=== PATIENT | female | born 1960 | race Asian ===

== ENCOUNTER → 2018-02-13 08:02 | Outpatient (REF) | payer OTHER, SELFPAY | LOC: LAB 08:02 | PROVIDERS: Family Provider Family Medicine; Visit Provider Internal Medicine Hematology & Oncology | DX: C92.10 Chronic myeloid leukemia, BCR/ABL-positive, not having achieved remission (principal) | CPT/HCPCS: 81206 ==

== ENCOUNTER → 2018-02-19 08:12 | Outpatient (CLI) | payer OTHER, SELFPAY ==
--- NOTE | 2018-02-19 | DI.MG.S_ITS ---
BILATERAL DIGITAL SCREENING MAMMOGRAM 3D/2D WITH CAD: 02/19/2018 CLINICAL: Routine screening. Comparison is made to exams dated: 10/28/2016 mammogram, 05/27/2015 mammogram, and 05/20/2014 mammogram - [facility]. The tissue of both breasts is heterogeneously dense. This may lower the sensitivity of mammography. Current study was also evaluated with a Computer Aided Detection (CAD) system. There is a 1 cm oval equal density asymmetry with a circumscribed margin in the right breast posterior depth superior region seen on the mediolateral oblique view only. No other significant masses, calcifications, or other findings are seen in either breast. IMPRESSION: INCOMPLETE: NEEDS ADDITIONAL IMAGING EVALUATION The 1 cm oval equal density asymmetry in the right breast is indeterminate. Mediolateral, exaggerated CC, and spot compression views as well as additional views with possible ultrasound are recommended. This exam was interpreted at Station ID: [id number]. NOTE: For mammograms, a report in lay terms will be sent to the patient. Approximately 15% of breast malignancies will not be visualized mammographically. In the management of a palpable breast mass, a negative mammogram must not discourage biopsy of a clinically suspicious lesion. Electronically Signed By: Savage bernard/buddy:02/19/2018 11:22:32 letter sent: Additional Imaging Needed ACR BI-RADS Category 0: Incomplete 3340F
== END ==
PROVIDERS: PCP Family Medicine; Visit Provider Family Medicine
DX: Z12.31 Encounter for screening mammogram for malignant neoplasm of breast (principal)
CPT/HCPCS: 77063; 77067

== ENCOUNTER → 2018-02-21 07:20 | Outpatient (CLI) | payer OTHER, SELFPAY ==
--- NOTE | 2018-02-21 07:22 | DI.MG.S_ITS ---
UNILATERAL RIGHT DIGITAL DIAGNOSTIC MAMMOGRAM 3D/2D WITH ADDITIONAL VIEWS: 02/21/2018 CLINICAL: Additional evaluation requested from prior study. Comparison is made to exams dated: 02/19/2018 mammogram, 10/28/2016 mammogram, and 05/27/2015 mammogram - [facility]. The tissue of the right breast is heterogeneously dense. This may lower the sensitivity of mammography. There is a 1 cm oval equal density asymmetry with a circumscribed margin in the right breast posterior depth superior region seen on the mediolateral oblique view only. No other significant masses or calcifications are seen in the breast. IMPRESSION: INCOMPLETE: NEEDS ADDITIONAL IMAGING EVALUATION The 1 cm oval equal density asymmetry in the right breast is indeterminate. An ultrasound is recommended. This exam was interpreted at Station ID: [id number]. NOTE: For mammograms, a report in lay terms will be sent to the patient. Approximately 15% of breast malignancies will not be visualized mammographically. In the management of a palpable breast mass, a negative mammogram must not discourage biopsy of a clinically suspicious lesion. Electronically Signed By: Savage bernard/buddy:02/21/2018 15:11:45 letter sent: Need Ultrasound ACR BI-RADS Category 0: Incomplete 3340F
--- NOTE | 2018-02-21 15:20 | DI.US.S_ITS ---
ULTRASOUND OF RIGHT AXILLA: 02/21/2018 CLINICAL: Patient returns for additional imaging over a suspected mass in the right breast. Comparison is made to exams dated: 02/21/2018 mammogram, 02/19/2018 mammogram, and 10/28/2016 mammogram - [facility]. Color flow and real-time ultrasound of the right axilla were performed on the areas of interest. There is a benign 1.1 cm x 0.9 cm x 0.5 cm oval lymph node with a circumscribed margin in the right breast at 10 o'clock posterior depth. This oval lymph node is of mixed echogenicity. This correlates with mammography findings. Color flow imaging demonstrates that there is no increase in vascularity. IMPRESSION: BENIGN There is no sonographic evidence of malignancy. The 1.1 cm x 0.9 cm x 0.5 cm oval lymph node in the right breast is consistent with a lymph node and is benign. A 1 year screening mammogram is recommended. This exam was interpreted at Station ID: [id number]. Electronically Signed By: Savage bernard/buddy:02/21/2018 16:33:09 letter sent: Normal Exam Ultrasound BI-RADS: 2 Benign
== END ==
PROVIDERS: PCP Family Medicine; Visit Provider Family Medicine
DX: R92.8 Other abnormal and inconclusive findings on diagnostic imaging of breast (principal)
CPT/HCPCS: 76642; 77065; G0279

== ENCOUNTER → 2018-05-08 16:00 | Outpatient (CLI) | payer OTHER, SELFPAY | PROVIDERS: PCP Family Medicine | DX: Z23 Encounter for immunization (principal) | CPT/HCPCS: 90471; 90686 ==

== ENCOUNTER → 2018-07-02 17:08 | Outpatient (CLI) | payer OTHER, SELFPAY ==
--- NOTE | 2018-07-24 11:46 | ONC.NAV ---
Description: FMLA Activity: Completed the corrections that pt requested for her 2019 FMLA forms. Notified pt that she could p/u at [employer].
== END ==
PROVIDERS: PCP Family Medicine; Visit Provider Physician Assistant
DX: J02.9 Acute pharyngitis, unspecified (principal)
CPT/HCPCS: 87070; 87077; 87147

== ENCOUNTER → 2018-07-06 08:10 | Outpatient (CLI) | payer OTHER, SELFPAY | PROVIDERS: PCP Family Medicine; Visit Provider Physician Assistant | DX: J02.9 Acute pharyngitis, unspecified (principal) | CPT/HCPCS: 87070; 87077; 87147 ==

== ENCOUNTER → 2018-10-01 09:24 | Outpatient (CLI) | payer OTHER, SELFPAY ==
--- NOTE | 2018-10-01 09:25 | DI.US.S_ITS ---
PROCEDURE: US ABDOMEN COMPLETE INDICATIONS: RUQ ABD PAIN TECHNIQUE: Real-time scanning was performed of the abdominal and retroperitoneal organs, with image documentation. COMPARISON: None. FINDINGS: Liver: Liver is normal in size and homogeneous in echotexture. Gallbladder: No findings of gallstones or sludge are seen. The gallbladder wall is not thickened, measuring 3 mm or less. No specific pericholecystic fluid is seen. The sonographic Peace sign is negative. Biliary ducts: Intrahepatic bile ducts are non-dilated. Extrahepatic bile duct caliber measures 2 mm. Normal is 6-7 mm or less in diameter, or 10 mm or less post-cholecystectomy. Pancreas: Visualized portions of the pancreas are sonographically normal. Spleen: The spleen is overall not well-seen. Spleen is normal in size and homogeneous in echotexture. Kidneys: Kidneys are normal in size and echotexture. Right kidney measures 10.7 cm long; left kidney measures 10.5 cm long. No hydronephrosis or nephrolithiasis. No solid masses. Aorta: Visualized aorta is normal in caliber at less than 3 cm. Iliacs: Proximal common iliac arteries are normal in caliber at less than 2.5 cm. IVC: Intrahepatic inferior vena cava is patent. Miscellaneous: No free abdominal fluid. IMPRESSION: The gallbladder demonstrates a normal sonographic appearance. No biliary dilatation is seen. Dictated by: Roverto Betancourt M.D. on 10/01/2018 at 11:17 Approved by: Roverto Betancourt M.D. on 10/01/2018 at 11:18
[2018-10-01 10:52] LABS: Basophils Absolute Auto 100 /uL (0-100); Eosinophils Absolute Auto 200 /uL (0-450); Monocytes Absolute Auto 500 /uL (0-900)
[2018-10-01 10:55] LABS: Add Manual Diff / Slide Review NO; Basophils Percent Auto 1.1 % (0-2); Eosinophils Percent Auto 3.3 % (2-4); Hematocrit 35.3 % (36-46); Lymphocytes Absolute Auto 1900 /uL (1100-4500); Lymphocytes Percent Auto 33.6 % (25-40); Mean Corpuscular HGB Conc 31.2 % (30-36); Mean Corpuscular Hemoglobin 23.2 PG (26-34); Mean Corpuscular Volume 74.2 fL (80-100); Monocytes Percent Auto 8.5 % (3-14); Neutrophils Absolute Auto 3100 /uL (1500-7000); Neutrophils Percent Auto 53.5 % (50-75); Platelet Count 363 X10^3/uL (150-400); Red Blood Cell Count 4.76 X10^6/uL (4.0-5.2); Red Cell Distribution Width 14.1 % (11.6-14.8); White Blood Cell Count 5.8 X10^3/uL (4.5-11.0)
[2018-10-01 10:58] LABS: Alanine Aminotransferase 34 IU/L (9-52); Albumin 4.8 g/dL (3.5-5.0); Albumin Globulin Ratio 1.4 (1.0-2.8); Alkaline Phosphatase 73 U/L (38-126); Aspartate Aminotransferase 28 IU/L (14-36); BUN Creatinine Ratio 14.3 (6-22); Bilirubin Total 0.5 mg/dL (0.2-1.3); Blood Urea Nitrogen 10 mg/dL (7-17); Calcium 9.6 mg/dL (8.4-10.2); Carbon Dioxide 26 mmol/L (22-32); Chloride 101 mmol/L (98-107); Estimated Glomerular Filt Rate > 60.0 mL/min (>60); Globulin 3.5 g/dL (1.7-4.1); Glucose 105 mg/dL (70-100); HEMOLYSIS < 15 (0-50); Potassium 3.5 mmol/L (3.4-5.1); Sodium 138 mmol/L (137-145); Total Protein 8.3 g/dL (6.3-8.2)
== END ==
PROVIDERS: PCP Family Medicine; Visit Provider Family Medicine
DX: C92.10 Chronic myeloid leukemia, BCR/ABL-positive, not having achieved remission (principal); R10.11 Right upper quadrant pain
CPT/HCPCS: 36415; 76700; 80053; 81206; 85025

== ENCOUNTER → 2018-12-18 16:34 | Outpatient (REF) | payer OTHER, SELFPAY ==
[2018-12-18 16:41] LABS: Add Manual Diff / Slide Review NO; Basophils Absolute Auto 0 /uL (0-100); Basophils Percent Auto 0.2 % (0-2); Eosinophils Absolute Auto 200 /uL (0-450); Eosinophils Percent Auto 3.6 % (2-4); Hematocrit 35.7 % (36-46); Hemoglobin 11.5 g/dL (12.0-16.0); Lymphocytes Absolute Auto 1600 /uL (1100-4500); Lymphocytes Percent Auto 25.8 % (25-40); Mean Corpuscular HGB Conc 32.1 % (30-36); Mean Corpuscular Hemoglobin 23.6 PG (26-34); Mean Corpuscular Volume 73.7 fL (80-100); Monocytes Absolute Auto 700 /uL (0-900); Monocytes Percent Auto 11.8 % (3-14); Neutrophils Absolute Auto 3600 /uL (1500-7000); Neutrophils Percent Auto 58.6 % (50-75); Platelet Count 327 X10^3/uL (150-400); Red Blood Cell Count 4.85 X10^6/uL (4.0-5.2); Red Cell Distribution Width 14.6 % (11.6-14.8); White Blood Cell Count 6.1 X10^3/uL (4.5-11.0)
[2018-12-18 16:59] LABS: Alanine Aminotransferase 20 IU/L (9-52); Albumin 4.9 g/dL (3.5-5.0); Albumin Globulin Ratio 1.4 (1.0-2.8); Alkaline Phosphatase 63 U/L (38-126); Aspartate Aminotransferase 25 IU/L (14-36); BUN Creatinine Ratio 13.3 (6-22); Bilirubin Total 0.2 mg/dL (0.2-1.3); Blood Urea Nitrogen 8 mg/dL (7-17); Calcium 9.3 mg/dL (8.4-10.2); Carbon Dioxide 23 mmol/L (22-32); Chloride 102 mmol/L (98-107); Estimated Glomerular Filt Rate > 60.0 mL/min (>60); Globulin 3.6 g/dL (1.7-4.1); Glucose 115 mg/dL (70-100); HEMOLYSIS < 15 (0-50); Potassium 3.7 mmol/L (3.4-5.1); Sodium 137 mmol/L (137-145); Total Protein 8.5 g/dL (6.3-8.2)
[2018-12-18 20:42] LABS: Clostridium Difficile Tox PCR Negative for C.diff
== END ==
LOC: LAB 16:34
PROVIDERS: PCP Family Medicine; Visit Provider Physician Assistant
DX: R19.7 Diarrhea, unspecified (principal)
CPT/HCPCS: 36415; 80053; 85025; 87045; 87493; 87899

== ENCOUNTER → 2019-05-08 07:12 | Outpatient (CLI) | payer OTHER, SELFPAY ==
--- NOTE | 2019-05-08 | DI.MG.S_ITS ---
BILATERAL DIGITAL SCREENING MAMMOGRAM 3D/2D WITH CAD: 05/08/2019 CLINICAL: Routine screening. Comparison is made to exams dated: 02/19/2018 mammogram, 10/28/2016 mammogram, 05/27/2015 mammogram, 05/20/2014 mammogram, 05/10/2013 mammogram, and 02/21/2018 mammogram - [facility]. The tissue of both breasts is heterogeneously dense. This may lower the sensitivity of mammography. Current study was also evaluated with a Computer Aided Detection (CAD) system. No significant masses, calcifications, or other findings are seen in either breast. There has been no significant interval change. IMPRESSION: NEGATIVE There is no mammographic evidence of malignancy. A 1 year screening mammogram is recommended. This exam was interpreted at Station ID: [id number]. NOTE: For mammograms, a report in lay terms will be sent to the patient. Approximately 15% of breast malignancies will not be visualized mammographically. In the management of a palpable breast mass, a negative mammogram must not discourage biopsy of a clinically suspicious lesion. Electronically Signed By: Francisco murry/buddy:05/08/2019 19:43:57 letter sent: Normal Exam ACR BI-RADS Category 1: Negative 3341F
== END ==
PROVIDERS: PCP Family Medicine; Visit Provider Family Medicine
DX: Z12.31 Encounter for screening mammogram for malignant neoplasm of breast (principal)
CPT/HCPCS: 77063; 77067

== ENCOUNTER → 2019-05-21 13:54 | Outpatient (CLI) | payer OTHER, SELFPAY | PROVIDERS: PCP Family Medicine | DX: Z23 Encounter for immunization (principal) | CPT/HCPCS: 90471; 90686 ==

== ENCOUNTER 2020-04-01 14:22 | Emergency (ER) | payer OTHER, SELFPAY ==
[2020-04-01] VITALS (10 sets, daily range): BP systolic 135–187; BP diastolic 65–81; PULSE 75–97; RESP 14–25; TEMP 36.1; O2SAT 98–100; BMI 27.3
--- NOTE | 2020-04-01 14:32 | DI.RAD.S_ITS ---
PROCEDURE: XR CHEST 1V INDICATIONS: chest pain TECHNIQUE: One view of the chest was acquired. COMPARISON: [facility], , CHEST 1 VIEW, 12/28/2010, 15:15. FINDINGS: Surgical changes and devices: None. Lungs and pleura: Lungs are clear. No pleural effusions or pneumothorax. Mediastinum: Mediastinal contours appear normal. Heart size is normal. Bones and chest wall: No suspicious bony lesions. Overlying soft tissues appear unremarkable. IMPRESSION: No evidence acute pulmonary process. Dictated by: Jamin Wilson M.D. on 04/01/2020 at 15:24 Approved by: Jamin Wilson M.D. on 04/01/2020 at 15:25
[2020-04-01 14:48] LABS: RBC Urine None Seen (0-5/HPF)
[2020-04-01 14:58] LABS: Bacteria Urine Occasional (0-1); Culture Indicated Urine Specimen Cultured; Squamous Epithelial Cell Urine 0-1 /HPF (0-5/HPF); WBC Urine 0-1/HPF (0-5/HPF)
[2020-04-01 14:58] LABS: Add Manual Diff / Slide Review NO; Basophils Absolute Auto 0 /uL (0-100); Basophils Percent Auto 0.7 % (0-2); Eosinophils Absolute Auto 0 /uL (0-450); Eosinophils Percent Auto 0.3 % (2-4); Hematocrit 34.3 % (36-46); Hemoglobin 10.6 g/dL (12.0-16.0); Lymphocytes Absolute Auto 2100 /uL (1100-4500); Lymphocytes Percent Auto 31.8 % (25-40); Mean Corpuscular Hemoglobin 23.4 PG (26-34); Mean Corpuscular Volume 75.4 fL (80-100); Monocytes Absolute Auto 500 /uL (0-900); Monocytes Percent Auto 7.4 % (3-14); Neutrophils Absolute Auto 4000 /uL (1500-7000); Neutrophils Percent Auto 59.8 % (50-75); Platelet Count 288 X10^3/uL (150-400); Red Blood Cell Count 4.55 X10^6/uL (4.0-5.2); Red Cell Distribution Width 13.2 % (11.6-14.8); White Blood Cell Count 6.7 X10^3/uL (4.5-11.0)
[2020-04-01 15:06] LABS: INR 0.9 (0.9-1.3); Prothrombin Time 10.8 SECONDS (10.1-12.7)
[2020-04-01 15:09] LABS: PTT Partial Thromboplastin Tim 35 SECONDS (26.4-36.2)
[2020-04-01 15:11] LABS: Alanine Aminotransferase 18 IU/L (<35); Albumin 4.8 g/dL (3.5-5.0); Albumin Globulin Ratio 1.5 (1.0-2.8); Alkaline Phosphatase 56 U/L (38-126); Aspartate Aminotransferase 43 IU/L (14-36); BUN Creatinine Ratio 19.2 (6-22); Bilirubin Total 0.6 mg/dL (0.2-1.3); Blood Urea Nitrogen 10 mg/dL (7-17); Calcium 9.9 mg/dL (8.4-10.2); Carbon Dioxide 24 mmol/L (22-32); Chloride 106 mmol/L (98-107); Creatine Kinase 413 U/L (30-135); Estimated Glomerular Filt Rate > 60.0 mL/min (>60); Globulin 3.2 g/dL (1.7-4.1); Glucose 107 mg/dL (70-100); HEMOLYSIS 63 (0-50); Lipase 152 U/L (23-300); Sodium 138 mmol/L (137-145)
[2020-04-01 15:12] LABS: Potassium 4.5 mmol/L (3.4-5.1)
[2020-04-01 15:22] LABS: Troponin I < 0.012 ng/mL (0.01-0.034)
[2020-04-01 15:26] LABS: CKMB % Relative Index 0.4 % (1.5-5.0); Creatine Kinase MB 1.63 ng/mL (<2.37)
--- NOTE | 2020-04-01 15:36 | ED_ITS ---
HPI - General Adult <Sami NevarezANN - Last Filed: 04/01/20 21:13> General Chief complaint: Hypertension Stated complaint: elevated blood pressure Time Seen by Provider: 04/01/20 14:32 Source: patient Mode of arrival: Ambulatory Limitations: no limitations History of Present Illness HPI narrative: This is a 59 year female, nonsmoker, who has known hypertension and CML presents to ED with elevated blood pressure over 200 in systolic at home this morning without chest pain, breathing difficulty, headache, vision change or lightheadedness. Patient has significant life stressor at this time and reports that her had a quadruple bypass 5 days ago and he is now at home recuperating and she has been taking care of him at home. She reports has not been sleeping well. Patient was very worried for elevated blood pressure and had doubled lisinopril dose this morning as 20 mg. she recheck her blood pressure and he was still elevated and had taken another additional dose of lisinopril 10 mg before coming into ED. patient reports was concerned for having a heart attack as her 's recent event. Related Data Previous Rx's Medication Instructions Recorded lisinopril 10 mg tablet 10 mg PO Q DAY #90 tab 10/30/19 imatinib [Gleevec] 400 mg PO DAILY #90 tab 01/30/20 clobetasol 0.05 % topical ointment 1 applictn TOPICAL BID PRN #60 gram 02/10/20 Allergies Allergy/AdvReac Type Severity Reaction Status Date / Time allopurinol [ALLOPURINOL] Allergy Mild rash and Verified 04/01/20 14:57 itch latex [LATEX] Allergy Mild hives Verified 04/01/20 14:57 prednisone AdvReac Mild High BP Verified 04/01/20 14:57 Review of Systems <Sami NevarezANN - Last Filed: 04/01/20 21:13> Review of Systems Narrative: General: Denies fever, chills, fatigue, malaise, sweats. HEENT: Denies sinus pain, ear pain, sore throat, difficulty swallowing, dizziness. Respiratory: Denies dyspnea, cough, wheezing, hemoptysis, sputum. Cardiovascular: Denies chest pain, palpitations, orthopnea, edema. Gastrointestinal: Denies nausea, vomiting, abdominal pain, diarrhea, constipation, melena. : Denies dysuria, frequency, incontinence, hematuria, urinary retention. Musculoskeletal: Denies weakness, joint pain or bony pain. Skin: Denies rash, skin lesions, or other. Neurologic: Denies weakness, headache, numbness, change in speech, confusion, seizures, incoordination. Psychiatric: No concerning psychosocial issues. 12-point review of systems is negative except for those stated above. Patient History <ANN Izaguirre - Last Filed: 04/01/20 21:13> Medical History (Updated 04/01/20 @ 21:08 by ANN Izaguirre) Hypertension (Acute) Thalassemia (Acute) Surgical History Status post tubal ligation (01/07/00) Family History Mother Age: 95 CVA (cerebral infarction) Hypertension Social History marital status: Smoking Status: Never smoker alcohol intake: never substance use type: does not use Smoking Status: Never smoker Exam <ANN Izaguirre - Last Filed: 04/01/20 21:13> Narrative Exam Narrative: GEN: Alert, oriented x 3, well appearing and nourished, and in no acute distress. Head: Normal cephalic, atraumatic. No scalp or temporal tenderness, palpable mass or rash. EYES: Pupils are equal, round, and reactive to light and accommodation. Extraocular muscles are intact bilaterally. There is no subconjunctival h emorrhage, exudate and sclera non-icteric. ENT: Hearing grossly intact. Nose without bleeding, purulent discharge or deviation. Airway patent. Neck: Trachea in midline. No JVD, non-tender without lymphadenopathy. No masses or thyroid megaly. Supple, non-tender and no meningeal signs. CARDIAC: Normal regular rate and rhythm without murmurs, gallops, or rubs. No chest wall tenderness. No peripheral edema, cyanosis or pallor. Capillary refill is less than 2 seconds. RESPIRATORY: Lungs are clear to auscultate bilaterally. No cough, wheezes, rales, or rhonchi. No stridor, respiratory distress, increase work of breathing, or accessary muscle used. ABD: Abdomen soft, nontender and non-distended. No guarding or rebound tenderness to palpate. Bowel sounds are normal in all 4 quadrants. There is no palpable masses or organomegaly. EXT: Full painless ROM of all extremities with no loss of sensation, strength, effusion or edema. SKIN: Warm, dry, normal color for patient. No erythema, lesions or rash over visible areas. BACK: Nontender without deformity or crepitance. No flank tenderness. NEUROLOGICAL: Alert and oriented to place, time and person. Sensation and motor function intact bilaterally. No facial droops, dysphasia. PSYCHIATRIC: Good judgement and reason, without hallucinations, abnormal affect or abnormal behaviors during the examination. Patient is not suicidal. Initial Vital Signs Initial Vital Signs: Vital Signs Temperature 97.0 F L 04/01/20 14:29 Pulse Rate 97 H 04/01/20 14:29 Respiratory Rate 16 04/01/20 14:29 Blood Pressure 187/81 H 04/01/20 14:29 Pulse Oximetry 98 04/01/20 14:29 <Monisha Venegas DO - Last Filed: 04/02/20 08:26> Initial Vital Signs Initial Vital Signs: Vital Signs Temperature 97.0 F L 04/01/20 14:29 Pulse Rate 97 H 04/01/20 14:29 Respiratory Rate 16 04/01/20 14:29 Blood Pressure 187/81 H 04/01/20 14:29 Pulse Oximetry 98 04/01/20 14:29 Scores <ANN Izaguirre - Last Filed: 04/01/20 21:13> GCS Sixto coma scale eye opening: Spontaneous [place] coma scale verbal response: Orientated Sixto coma scale motor response: Obey commands Sixto coma scale total score: 15 Course <ANN Izaguirre - Last Filed: 04/01/20 21:13> Orders Ordered: ED Orders 04/01/20 14:32 XR chest 1V Stat EKG-12 Lead Stat 04/01/20 14:34 Urine Culture Stat Urine Microscopic Stat 04/01/20 14:51 Complete Blood Count AUTO DIFF Stat Comprehensive Metabolic Panel Stat Lipase Stat Partial Thromboplastin Time Stat Prothrombin Time INR Stat Troponin & CK Cardiac Panel Stat Vital Signs Vital signs: Vital Signs - 8 hr 04/01/20 14:29 04/01/20 14:33 04/01/20 14:36 Temperature 97.0 F L Pulse Rate 97 H 97 H 93 H Respiratory Rate 16 16 21 Blood Pressure 187/81 H 177/80 H 163/80 H Pulse Oximetry 98 100 99 04/01/20 14:45 04/01/20 15:00 04/01/20 15:15 Temperature Pulse Rate 88 91 H 87 Respiratory Rate 22 20 25 H Blood Pressure 142/65 H 148/71 H 148/77 H Pulse Oximetry 99 04/01/20 15:30 04/01/20 15:45 04/01/20 16:00 Temperature Pulse Rate 82 80 79 Respiratory Rate 22 16 16 Blood Pressure 153/74 H 148/72 H 140/68 Pulse Oximetry 100 100 100 04/01/20 16:15 Temperature Pulse Rate 75 Respiratory Rate 14 Blood Pressure 135/71 Pulse Oximetry 99 <Monisha Venegas, - Last Filed: 04/02/20 08:26> Orders Ordered: ED Orders 04/01/20 14:32 XR chest 1V Stat EKG-12 Lead Stat 04/01/20 14:34 Urine Culture Stat Urine Microscopic Stat 04/01/20 14:51 Complete Blood Count AUTO DIFF Stat Comprehensive Metabolic Panel Stat Lipase Stat Partial Thromboplastin Time Stat Prothrombin Time INR Stat Troponin & CK Cardiac Panel Stat Vital Signs Vital signs: Vital Signs - 8 hr 04/01/20 14:29 04/01/20 14:33 04/01/20 14:36 Temperature 97.0 F L Pulse Rate 97 H 97 H 93 H Respiratory Rate 16 16 21 Blood Pressure 187/81 H 177/80 H 163/80 H Pulse Oximetry 98 100 99 04/01/20 14:45 04/01/20 15:00 04/01/20 15:15 Temperature Pulse Rate 88 91 H 87 Respiratory Rate 22 20 25 H Blood Pressure 142/65 H 148/71 H 148/77 H Pulse Oximetry 99 04/01/20 15:30 04/01/20 15:45 04/01/20 16:00 Temperature Pulse Rate 82 80 79 Respiratory Rate 22 16 16 Blood Pressure 153/74 H 148/72 H 140/68 Pulse Oximetry 100 100 100 04/01/20 16:15 Temperature Pulse Rate 75 Respiratory Rate 14 Blood Pressure 135/71 Pulse Oximetry 99 Medical Decision Making <Sami Dave-Oras, [employer] - Last Filed: 04/01/20 21:13> Differential Diagnosis Differential Diagnosis: HTN, NSTEMI, situational stress Medical Records Medical records reviewed: Yes I reviewed the patient's medical records. Lab Data Lab results reviewed: Yes I reviewed the patient's lab results. Result diagrams: 04/01/20 14:51 04/01/20 14:51 Labs: Lab Results 04/01/20 04/01/20 04/01/20 Range/Units 14:34 14:51 14:51 WBC 6.7 (4.5-11.0) X10^3/uL RBC 4.55 (4.0-5.2) X10^6/uL Hgb 10.6 L (12.0-16.0) g/dL Hct 34.3 L (36-46) % MCV 75.4 L (80-100) fL MCH 23.4 L (26-34) PG MCHC 31.0 (30-36) % RDW 13.2 (11.6-14.8) % Plt Count 288 (150-400) X10^3/uL Neut % (Auto) 59.8 (50-75) % Lymph % (Auto) 31.8 (25-40) % [place] % (Auto) 7.4 (3-14) % Eos % (Auto) 0.3 L (2-4) % Baso % (Auto) 0.7 (0-2) % Neut # (Auto) 4000 (6159-6911) /uL Lymph # (Auto) 2100 (5677-7452) /uL [place] # (Auto) 500 (0-900) /uL Eos # (Auto) 0 (0-450) /uL Baso # (Auto) 0 (0-100) /uL PT 10.8 (10.1-12.7) SECONDS INR 0.9 (0.9-1.3) APTT 35 (26.4-36.2) SECONDS Sodium (137-145) mmol/L Potassium (3.4-5.1) mmol/L Chloride (98-107) mmol/L Carbon Dioxide (22-32) mmol/L BUN (7-17) mg/dL Creatinine (0.52-1.04) mg/dL Estimated GFR (>60) mL/min BUN/Creatinine Ratio (6-22) Glucose (70-100) mg/dL Calcium (8.4-10.2) mg/dL Total Bilirubin (0.2-1.3) mg/dL AST (14-36) IU/L ALT (<35) IU/L Alkaline Phosphatase (38-126) U/L Total Creatine Kinase (30-135) U/L CK-MB (CK-2) (<2.37) ng/mL CK-MB (CK-2) Rel Index (1.5-5.0) % Troponin I (0.01-0.034) ng/mL Total Protein (6.3-8.2) g/dL Albumin (3.5-5.0) g/dL Globulin (1.7-4.1) g/dL Albumin/Globulin Ratio (1.0-2.8) Lipase (23-300) U/L Urine RBC None seen (0-5/HPF) Urine WBC 0-1/hpf (0-5/HPF) Ur Squamous Epith Cells 0-1 /hpf (0-5/HPF) Urine Bacteria Occasional (0-1) (None) Ur Culture Indicated? Specimen cultured 04/01/20 Range/Units 14:51 WBC (4.5-11.0) X10^3/uL RBC (4.0-5.2) X10^6/uL Hgb (12.0-16.0) g/dL Hct (36-46) % MCV (80-100) fL MCH (26-34) PG MCHC (30-36) % RDW (11.6-14.8) % Plt Count (150-400) X10^3/uL Neut % (Auto) (50-75) % Lymph % (Auto) (25-40) % [place] % (Auto) (3-14) % Eos % (Auto) (2-4) % Baso % (Auto) (0-2) % Neut # (Auto) (2569-4615) /uL Lymph # (Auto) (9713-3241) /uL [place] # (Auto) (0-900) /uL Eos # (Auto) (0-450) /uL Baso # (Auto) (0-100) /uL PT (10.1-12.7) SECONDS INR (0.9-1.3) APTT (26.4-36.2) SECONDS Sodium 138 (137-145) mmol/L Potassium 4.5 (3.4-5.1) mmol/L Chloride 106 (98-107) mmol/L Carbon Dioxide 24 (22-32) mmol/L BUN 10 (7-17) mg/dL Creatinine 0.52 (0.52-1.04) mg/dL Estimated GFR > 60.0 (>60) mL/min BUN/Creatinine Ratio 19.2 (6-22) Glucose 107 H (70-100) mg/dL Calcium 9.9 (8.4-10.2) mg/dL Total Bilirubin 0.6 (0.2-1.3) mg/dL AST 43 H (14-36) IU/L ALT 18 (<35) IU/L Alkaline Phosphatase 56 (38-126) U/L Total Creatine Kinase 413 H (30-135) U/L CK-MB (CK-2) 1.63 (<2.37) ng/mL CK-MB (CK-2) Rel Index 0.4 L (1.5-5.0) % Troponin I < 0.012 (0.01-0.034) ng/mL Total Protein 8.0 (6.3-8.2) g/dL Albumin 4.8 (3.5-5.0) g/dL Globulin 3.2 (1.7-4.1) g/dL Albumin/Globulin Ratio 1.5 (1.0-2.8) Lipase 152 (23-300) U/L Urine RBC (0-5/HPF) Urine WBC (0-5/HPF) Ur Squamous Epith Cells (0-5/HPF) Urine Bacteria (None) Ur Culture Indicated? Urine Dip Bedside Urine Glucose Negative Bedside Urine Bilirubin - Negative Bedside Urine Ketone - Negative Urine Specific [place] 1.030 Bedside Urine Occult Blood - Negative Bedside Urine pH 6 Bedside Urine Protein - Negative Bedside Urine Urobilinogen - Negative Bedside Urine Nitrite - Negative Bedside Urine Leukocytes + 70 Esterase Point of care testing: Urine Dip Bedside Urine Glucose Negative Bedside Urine Bilirubin - Negative Bedside Urine Ketone - Negative Urine Specific [place] 1.030 Bedside Urine Occult Blood - Negative Bedside Urine pH 6 Bedside Urine Protein - Negative Bedside Urine Urobilinogen - Negative Bedside Urine Nitrite - Negative Bedside Urine Leukocytes + 70 Esterase Imaging Data Chest x-ray: Radiologist's Impression: [address] [address] XRay Report Signed Patient: Tayler Peng [facility]#: [id number] : 1Acct:[id number] Age/Sex: 59 / FDate of Service: 04/01/20 Loc: ED Accession Number: [id number] Procedure: XR chest 1V Ordering Provider: Monisha Venegas D.O. PROCEDURE: XR CHEST 1V INDICATIONS: chest pain TECHNIQUE: One view of the chest was acquired. COMPARISON: [facility], , CHEST 1 VIEW, 12/28/2010, 15:15. FINDINGS: Surgical changes and devices: None. Lungs and pleura: Lungs are clear. No pleural effusions or pneumothorax. Mediastinum: Mediastinal contours appear normal. Heart size is normal. Bones and chest wall: No suspicious bony lesions. Overlying soft tissues appear unremarkable. IMPRESSION: No evidence acute pulmonary process. Dictated by: Jamin Wilson M.D. on 04/01/2020 at 15:24 Approved by: Jamin Wilson M.D. on 04/01/2020 at 15:25 ECG Data Attestation: I personally reviewed and interpreted this ECG as follows: Prior ECG tracings: available for review Interpretation: Normal sinus rhythm rate at 90. Normal [place]. [place] interval 140, QRS duration 82, QT/OAT532/[address] changes. No significant changes from previous EKGs MDM Narrative Medical decision making narrative: This is a 59 year female who has history of hypertension presents to ED with elevated blood pressure upto 200 in SBP with home wrist blood pressure monitoring machine but without cardiac symptoms. Her prescribed blood pressure medication lisinopril dose is at 10 mg. she was instructed to take additional 10 mg with elevated blood pressure per her primary care physician. So she had taken 20 mg of lisinopril in the morning but when the BP was not improving patient has taken additional 10 mg lisinopril before coming into ED. she had taken 2 doses of baby aspirin at home. Patient is going through significant life stress at this time with her 's recent cardiac bypass surgery. Patient denies any cardiac symptoms. EKG shows normal sinus rhythm. Chest x- ray is within normal limit without acute findings. Troponin was negative. Chemistry was unremarkable. Patient has history of thalassemia anemia which reflected in today's CBC test with mildly decreased H&H of 10.6/34.3. Patient's blood pressure improved from 187/81 to 135/71 over 2.5 hrs monitored in ED. Patient advised to monitor blood pressure and track around same time of the day with same activity and to present this for next appointment with primary care physician. Patient may need medication adjustment based on this or this is incidental hypertensive episode due to situational stress. Patient informed it is okay to take doubling her lisinopril if her blood pressure is elevated above 170-180 in SBP. We talked about nonpharmacological way to decompressed for stress. Return precautions were discussed with patient especially if she has cardiac symptoms. Patient verbalized understanding and agreement with the treatment plan. <Monisha Venegas DO - Last Filed: 04/02/20 08:26> Lab Data Labs: Lab Results 04/01/20 04/01/20 04/01/20 Range/Units 14:34 14:51 14:51 WBC 6.7 (4.5-11.0) X10^3/uL RBC 4.55 (4.0-5.2) X10^6/uL Hgb 10.6 L (12.0-16.0) g/dL Hct 34.3 L (36-46) % MCV 75.4 L (80-100) fL MCH 23.4 L (26-34) PG MCHC 31.0 (30-36) % RDW 13.2 (11.6-14.8) % Plt Count 288 (150-400) X10^3/uL Neut % (Auto) 59.8 (50-75) % Lymph % (Auto) 31.8 (25-40) % [place] % (Auto) 7.4 (3-14) % Eos % (Auto) 0.3 L (2-4) % Baso % (Auto) 0.7 (0-2) % Neut # (Auto) 4000 (5127-5178) /uL Lymph # (Auto) 2100 (4228-2299) /uL [place] # (Auto) 500 (0-900) /uL Eos # (Auto) 0 (0-450) /uL Baso # (Auto) 0 (0-100) /uL PT 10.8 (10.1-12.7) SECONDS INR 0.9 (0.9-1.3) APTT 35 (26.4-36.2) SECONDS Sodium (137-145) mmol/L Potassium (3.4-5.1) mmol/L Chloride (98-107) mmol/L Carbon Dioxide (22-32) mmol/L BUN (7-17) mg/dL Creatinine (0.52-1.04) mg/dL Estimated GFR (>60) mL/min BUN/Creatinine Ratio (6-22) Glucose (70-100) mg/dL Calcium (8.4-10.2) mg/dL Total Bilirubin (0.2-1.3) mg/dL AST (14-36) IU/L ALT (<35) IU/L Alkaline Phosphatase (38-126) U/L Total Creatine Kinase (30-135) U/L CK-MB (CK-2) (<2.37) ng/mL CK-MB (CK-2) Rel Index (1.5-5.0) % Troponin I (0.01-0.034) ng/mL Total Protein (6.3-8.2) g/dL Albumin (3.5-5.0) g/dL Globulin (1.7-4.1) g/dL Albumin/Globulin Ratio (1.0-2.8) Lipase (23-300) U/L Urine RBC None seen (0-5/HPF) Urine WBC 0-1/hpf (0-5/HPF) Ur Squamous Epith Cells 0-1 /hpf (0-5/HPF) Urine Bacteria Occasional (0-1) (None) Ur Culture Indicated? Specimen cultured 04/01/20 Range/Units 14:51 WBC (4.5-11.0) X10^3/uL RBC (4.0-5.2) X10^6/uL Hgb (12.0-16.0) g/dL Hct (36-46) % MCV (80-100) fL MCH (26-34) PG MCHC (30-36) % RDW (11.6-14.8) % Plt Count (150-400) X10^3/uL Neut % (Auto) (50-75) % Lymph % (Auto) (25-40) % [place] % (Auto) (3-14) % Eos % (Auto) (2-4) % Baso % (Auto) (0-2) % Neut # (Auto) (8726-2530) /uL Lymph # (Auto) (0097-8472) /uL [place] # (Auto) (0-900) /uL Eos # (Auto) (0-450) /uL Baso # (Auto) (0-100) /uL PT (10.1-12.7) SECONDS INR (0.9-1.3) APTT (26.4-36.2) SECONDS Sodium 138 (137-145) mmol/L Potassium 4.5 (3.4-5.1) mmol/L Chloride 106 (98-107) mmol/L Carbon Dioxide 24 (22-32) mmol/L BUN 10 (7-17) mg/dL Creatinine 0.52 (0.52-1.04) mg/dL Estimated GFR > 60.0 (>60) mL/min BUN/Creatinine Ratio 19.2 (6-22) Glucose 107 H (70-100) mg/dL Calcium 9.9 (8.4-10.2) mg/dL Total Bilirubin 0.6 (0.2-1.3) mg/dL AST 43 H (14-36) IU/L ALT 18 (<35) IU/L Alkaline Phosphatase 56 (38-126) U/L Total Creatine Kinase 413 H (30-135) U/L CK-MB (CK-2) 1.63 (<2.37) ng/mL CK-MB (CK-2) Rel Index 0.4 L (1.5-5.0) % Troponin I < 0.012 (0.01-0.034) ng/mL Total Protein 8.0 (6.3-8.2) g/dL Albumin 4.8 (3.5-5.0) g/dL Globulin 3.2 (1.7-4.1) g/dL Albumin/Globulin Ratio 1.5 (1.0-2.8) Lipase 152 (23-300) U/L Urine RBC (0-5/HPF) Urine WBC (0-5/HPF) Ur Squamous Epith Cells (0-5/HPF) Urine Bacteria (None) Ur Culture Indicated? Urine Dip Bedside Urine Glucose Negative Bedside Urine Bilirubin - Negative Bedside Urine Ketone - Negative Urine Specific [place] 1.030 Bedside Urine Occult Blood - Negative Bedside Urine pH 6 Bedside Urine Protein - Negative Bedside Urine Urobilinogen - Negative Bedside Urine Nitrite - Negative Bedside Urine Leukocytes + 70 Esterase Point of care testing: Urine Dip Bedside Urine Glucose Negative Bedside Urine Bilirubin - Negative Bedside Urine Ketone - Negative Urine Specific [place] 1.030 Bedside Urine Occult Blood - Negative Bedside Urine pH 6 Bedside Urine Protein - Negative Bedside Urine Urobilinogen - Negative Bedside Urine Nitrite - Negative Bedside Urine Leukocytes + 70 Esterase Discharge Plan Departure Patient Disposition: Home Clinical Impression: Acute reaction to situational stress Hypertension Qualifiers: Hypertension type: essential hypertension Qualified Code(s): I10 - Essential (primary) hypertension Discharge Date/Time: 04/01/20 16:45 Instructions: DI for High Blood Pressure Activity Restrictions/Additional Instructions: You have been diagnosed with [elevated blood pressure likely from situational stress. EKG, chest x-ray, cardiac enzymes, chemistry tests are unremarkable. CBC test shows anemia given you have history of thalassemia anemia. Urine culture is pending. Will receive a phone call from us if you require antibiotic medication treatment.]. What to do: *Take your medications as directed. Continue with your blood pressure medications. Please monitor your blood pressure around same time with same activities 3 times a day for next several days. Please present this reading for your next appointment with Dr. Gustafson. If your blood pressure is elevated >170 in Systolic, take additional dose of the medication. *Follow up with your primary care provider in 2-3 days, call for an appointment. Let them know you were seen in the ED and that we asked you to be seen in follow up. *Return to ED if you have any new, worsening, or concerning symptoms, such as [chest pain, breathing difficulty, lightheadedness, nausea/vomiting, cold sweats or any acute concerns]. Prescriptions: No Action lisinopril [Zestril] 10 mg tablet 10 mg PO Q DAY Qty: 90 RF: 3 clobetasol 0.05 % ointment 1 applictn Topical BID PRN (Reason: eczema) Qty: 60 RF: 3 imatinib [Gleevec] 400 mg Tablet 400 mg PO DAILY Qty: 90 RF: 3 Referrals: Abel Gustafson MD [Primary Care Provider] - <Monisha Venegas DO - Last Filed: 04/02/20 08:26> Cosign ED Attending Preetiature Attestation: I was immediately available in the department for consultation. Documentation has been reviewed. I agree with assessment and plan.
== END 2020-04-01 16:45 | disposition home or self-care (01) ==
PROVIDERS: Emergency Medicine; Emergency Provider Nurse Practitioner Family; PCP Family Medicine
DX: I10 Essential (primary) hypertension (principal); F43.9 Reaction to severe stress, unspecified; R07.9 Chest pain, unspecified; D56.9 Thalassemia, unspecified
CPT/HCPCS: 36415; 71045; 80053; 81003; 81015; 82550; 82553; 83690; 84484; 85025; 85610; 85730; 87086; 93005; 99284

== ENCOUNTER → 2020-06-16 02:25 | Outpatient (CLI) | payer OTHER, SELFPAY | PROVIDERS: PCP Family Medicine; Referring Provider Internal Medicine; Visit Provider Internal Medicine | DX: Z23 Encounter for immunization (principal) | CPT/HCPCS: 90471; 90686 ==

== ENCOUNTER → 2020-06-23 09:11 | Outpatient (CLI) | payer OTHER, SELFPAY ==
--- NOTE | 2020-06-23 | DI.MG.S_ITS ---
BILATERAL DIGITAL SCREENING MAMMOGRAM 3D/2D WITH CAD: 06/23/2020 CLINICAL: Routine screening. Comparison is made to exams dated: 05/08/2019 mammogram, 02/19/2018 mammogram, and 10/28/2016 mammogram - [facility]. The tissue of both breasts is heterogeneously dense. This may lower the sensitivity of mammography. Current study was also evaluated with a Computer Aided Detection (CAD) system. No significant masses, calcifications, or other findings are seen in either breast. There has been no significant interval change. IMPRESSION: NEGATIVE There is no mammographic evidence of malignancy. A 1 year screening mammogram is recommended. This exam was interpreted at Station ID: [id number]. NOTE: For mammograms, a report in lay terms will be sent to the patient. Approximately 15% of breast malignancies will not be visualized mammographically. In the management of a palpable breast mass, a negative mammogram must not discourage biopsy of a clinically suspicious lesion. Electronically Signed By: Teo jones/buddy:06/23/2020 10:31:22 letter sent: Normal Exam ACR BI-RADS Category 1: Negative [id number]
== END ==
PROVIDERS: PCP Family Medicine; Referring Provider Family Medicine; Visit Provider Family Medicine
DX: Z12.31 Encounter for screening mammogram for malignant neoplasm of breast (principal)
CPT/HCPCS: 77063; 77067

== ENCOUNTER → 2020-08-13 06:48 | Outpatient (CLI) | payer OTHER, SELFPAY ==
[2020-08-13 07:29] LABS: Add Manual Diff / Slide Review NO; Basophils Absolute Auto 0 /uL (0-100); Basophils Percent Auto 0.6 % (0-2); Eosinophils Absolute Auto 100 /uL (0-450); Eosinophils Percent Auto 1.9 % (2-4); Hematocrit 34.1 % (36-46); Hemoglobin 10.5 g/dL (12.0-16.0); Lymphocytes Absolute Auto 2900 /uL (1100-4500); Lymphocytes Percent Auto 49.9 % (25-40); Mean Corpuscular HGB Conc 30.9 % (30-36); Mean Corpuscular Hemoglobin 23.1 PG (26-34); Mean Corpuscular Volume 74.9 fL (80-100); Monocytes Absolute Auto 600 /uL (0-900); Monocytes Percent Auto 10.3 % (3-14); Neutrophils Absolute Auto 2200 /uL (1500-7000); Neutrophils Percent Auto 37.3 % (50-75); Platelet Count 309 X10^3/uL (150-400); Red Blood Cell Count 4.55 X10^6/uL (4.0-5.2); Red Cell Distribution Width 13.6 % (11.6-14.8); White Blood Cell Count 5.8 X10^3/uL (4.5-11.0)
[2020-08-13 07:41] LABS: Alanine Aminotransferase 13 IU/L (<35); Albumin 4.5 g/dL (3.5-5.0); Albumin Globulin Ratio 1.4 (1.0-2.8); Alkaline Phosphatase 61 U/L (38-126); Aspartate Aminotransferase 25 IU/L (14-36); BUN Creatinine Ratio 27.4 (6-22); Bilirubin Total 0.4 mg/dL (0.2-1.3); Blood Urea Nitrogen 17 mg/dL (7-17); Calcium 9.2 mg/dL (8.4-10.2); Carbon Dioxide 30 mmol/L (22-32); Chloride 103 mmol/L (98-107); Estimated Glomerular Filt Rate > 60.0 mL/min (>60); Globulin 3.3 g/dL (1.7-4.1); Glucose 100 mg/dL (70-100); HEMOLYSIS < 15 (0-50); Potassium 3.9 mmol/L (3.4-5.1); Sodium 139 mmol/L (137-145); Total Protein 7.8 g/dL (6.3-8.2)
[2020-08-13 08:16] LABS: Ferritin 183 ng/mL (11-264)
[2020-08-20 23:07] LABS: Interpretation Negative (.)
== END ==
PROVIDERS: PCP Family Medicine; Referring Provider Internal Medicine Hematology & Oncology; Visit Provider Internal Medicine Hematology & Oncology
DX: C92.10 Chronic myeloid leukemia, BCR/ABL-positive, not having achieved remission (principal); D64.9 Anemia, unspecified
CPT/HCPCS: 36415; 80053; 81206; 81207; 82728; 85025

== ENCOUNTER → 2020-09-02 10:03 | Outpatient (CLI) | payer OTHER, SELFPAY ==
[2020-09-02] MEDS: COVID-19 VACC(MODERNA-1)/PF 100 MCG/0.5 ML VIAL IM (10:11)
== END ==
PROVIDERS: PCP Family Medicine; Visit Provider Internal Medicine
DX: Z23 Encounter for immunization (principal)
CPT/HCPCS: 0011A; 91301

== ENCOUNTER → 2020-09-29 10:02 | Outpatient (CLI) | payer OTHER, SELFPAY ==
[2020-09-29] MEDS: COVID-19 VACC #2, MRNA(MOD) 100 MCG/0.5 ML VIAL IM (10:05)
== END ==
PROVIDERS: PCP Family Medicine; Visit Provider Internal Medicine
DX: Z23 Encounter for immunization (principal)
CPT/HCPCS: 0012A; 91301

== ENCOUNTER → 2020-10-26 09:46 | Outpatient (CLI) | payer OTHER, SELFPAY ==
[2020-10-26 10:53] LABS: COVID19 -Nasal RAPID Negative (Negative)
== END ==
PROVIDERS: PCP Family Medicine; Visit Provider Nurse Practitioner Family
DX: Z20.822 Contact with and (suspected) exposure to COVID-19 (principal)
CPT/HCPCS: 87635

== ENCOUNTER → 2021-04-30 09:50 | Outpatient (CLI) | payer OTHER, SELFPAY ==
[2021-04-30 10:39] LABS: COVID19 -Nasal RAPID Negative (Negative)
== END ==
PROVIDERS: PCP Family Medicine; Referring Provider Nurse Practitioner; Visit Provider Nurse Practitioner
DX: J02.9 Acute pharyngitis, unspecified (principal); R52 Pain, unspecified; Z20.822 Contact with and (suspected) exposure to COVID-19
CPT/HCPCS: 87635

== ENCOUNTER → 2021-06-08 | Outpatient (CLI) | payer OTHER, SELFPAY | PROVIDERS: PCP Family Medicine; Referring Provider Internal Medicine; Visit Provider Internal Medicine | DX: Z23 Encounter for immunization (principal) | CPT/HCPCS: 90471; 90686 ==

== ENCOUNTER → 2021-07-02 09:26 | Outpatient (CLI) | payer OTHER, SELFPAY ==
[2021-07-02] MEDS: COVID-19 VACC #3, MRNA(MOD) 50 MCG/0.25 ML VIAL IM (09:33)
== END ==
PROVIDERS: PCP Family Medicine; Visit Provider Internal Medicine
DX: Z23 Encounter for immunization (principal)
CPT/HCPCS: 0013A; 91301

== ENCOUNTER → 2021-08-12 06:57 | Outpatient (CLI) | payer OTHER, SELFPAY ==
--- NOTE | 2021-08-12 | DI.MG.S_ITS ---
BILATERAL DIGITAL SCREENING MAMMOGRAM 3D/2D WITH CAD: 08/12/2021 CLINICAL: Routine screening. Comparison is made to exams dated: 06/23/2020 mammogram, 05/08/2019 mammogram, and 02/19/2018 mammogram - [facility]. The tissue of both breasts is heterogeneously dense. This may lower the sensitivity of mammography. Current study was also evaluated with a Computer Aided Detection (CAD) system. There is a biopsy clip in the left breast. No significant masses, calcifications, or other findings are seen in either breast. There has been no significant interval change. IMPRESSION: NEGATIVE There is no mammographic evidence of malignancy. A 1 year screening mammogram is recommended. This exam was interpreted at Station ID: [id number]. NOTE: For mammograms, a report in lay terms will be sent to the patient. Approximately 15% of breast malignancies will not be visualized mammographically. In the management of a palpable breast mass, a negative mammogram must not discourage biopsy of a clinically suspicious lesion. Electronically Signed By: Zoë hwang/buddy:08/12/2021 11:30:56 letter sent: Normal Exam ACR BI-RADS Category 1: Negative [id number]
== END ==
PROVIDERS: PCP Family Medicine; Referring Provider Family Medicine; Visit Provider Family Medicine
DX: Z12.31 Encounter for screening mammogram for malignant neoplasm of breast (principal)
CPT/HCPCS: 77063; 77067

== ENCOUNTER → 2021-08-16 09:57 | Outpatient (CLI) | payer OTHER, SELFPAY ==
[2021-08-16 10:32] LABS: COVID19 -Nasal RAPID Negative (Negative)
== END ==
PROVIDERS: PCP Family Medicine; Visit Provider Physician Assistant
DX: Z20.822 Contact with and (suspected) exposure to COVID-19 (principal)
CPT/HCPCS: 87635

== ENCOUNTER → 2021-09-14 07:19 | Outpatient (CLI) | payer OTHER, SELFPAY ==
[2021-09-14 08:15] LABS: Add Manual Diff / Slide Review NO; Basophils Absolute Auto 100 /uL (0-100); Basophils Percent Auto 1.5 % (0-2); Eosinophils Absolute Auto 100 /uL (0-450); Eosinophils Percent Auto 2.8 % (2-4); Hematocrit 32.8 % (36-46); Hemoglobin 10.6 g/dL (12.0-16.0); Lymphocytes Absolute Auto 2100 /uL (1100-4500); Lymphocytes Percent Auto 44.2 % (25-40); Mean Corpuscular HGB Conc 32.2 % (30-36); Mean Corpuscular Hemoglobin 23.3 PG (26-34); Mean Corpuscular Volume 72.3 fL (80-100); Monocytes Absolute Auto 400 /uL (0-900); Monocytes Percent Auto 8.4 % (3-14); Neutrophils Absolute Auto 2000 /uL (1500-7000); Neutrophils Percent Auto 43.1 % (50-75); Platelet Count 247 X10^3/uL (150-400); Red Blood Cell Count 4.54 X10^6/uL (4.0-5.2); Red Cell Distribution Width 14.1 % (11.6-14.8); White Blood Cell Count 4.8 X10^3/uL (4.5-11.0)
[2021-09-14 08:50] LABS: Alanine Aminotransferase 13 IU/L (<35); Albumin 4.6 g/dL (3.5-5.0); Albumin Globulin Ratio 1.5 (1.0-2.8); Alkaline Phosphatase 59 U/L (38-126); Aspartate Aminotransferase 25 IU/L (14-36); BUN Creatinine Ratio 21.9 (6-22); Bilirubin Total 0.4 mg/dL (0.2-1.3); Blood Urea Nitrogen 16 mg/dL (7-17); Calcium 9.1 mg/dL (8.4-10.2); Carbon Dioxide 26 mmol/L (22-32); Chloride 105 mmol/L (98-107); Estimated Glomerular Filt Rate > 60.0 mL/min (>60); Globulin 3.1 g/dL (1.7-4.1); Glucose 107 mg/dL (80-110); HEMOLYSIS < 15 (0-50); Potassium 4.3 mmol/L (3.4-5.1); Sodium 138 mmol/L (137-145); Total Protein 7.7 g/dL (6.3-8.2)
[2021-09-26 12:11] LABS: Interpretation Negative (.)
== END ==
PROVIDERS: PCP Family Medicine; Referring Provider Internal Medicine Hematology & Oncology; Visit Provider Internal Medicine Hematology & Oncology
DX: C92.10 Chronic myeloid leukemia, BCR/ABL-positive, not having achieved remission (principal)
CPT/HCPCS: 36415; 80053; 81206; 81207; 85025

== ENCOUNTER → 2021-10-18 07:18 | Outpatient (CLI) | payer OTHER, SELFPAY ==
--- NOTE | 2021-10-18 07:19 | DI.MRI.S_ITS ---
PROCEDURE: MR HEAD/BRAIN WO/W CON INDICATIONS: double vision, CML TECHNIQUE: Noncontrast axial T1 spin echo, axial T2 fast spin echo, sagittal and axial FLAIR, coronal T2 fast spin echo, axial gradient echo, axial diffusion and ADC through the brain. After the administration of contrast, axial and coronal 3D VIBE or T1 spin echo with fat saturation through the brain. COMPARISON: None. FINDINGS: Image quality: Excellent. CSF Spaces: Basal cisterns are patent. No extra-axial fluid collections. Ventricles are normal in size and shape. Brain: No midline shift. No intracranial bleeds or masses. There are minimal frontal subcortical white matter chronic microvascular ischemic changes. No abnormal intracranial enhancement. The brainstem appears normal. Diffusion-weighted images demonstrate no acute ischemic insults. No chronic ischemic insults. Normal intravascular flow voids are present. Dural sinuses demonstrate normal postcontrast enhancement. Skull and face: Calvarial marrow is normal in signal. Orbits appear normal. Sinuses: Sinuses and mastoids appear clear. IMPRESSION: 1. No acute intracranial disease process. 2. No abnormal intracranial mass or mass effect. 3. No suspicious postcontrast enhancement. Dictated by: Anna Loyola MD, PhD on 10/18/2021 at 11:28 Approved by: Anna Loyola MD, PhD on 10/18/2021 at 11:31
== END ==
PROVIDERS: PCP Family Medicine; Referring Provider Internal Medicine Hematology & Oncology; Visit Provider Internal Medicine Hematology & Oncology
DX: C92.10 Chronic myeloid leukemia, BCR/ABL-positive, not having achieved remission (principal); H53.2 Diplopia
CPT/HCPCS: 70553; A9579

== ENCOUNTER → 2022-05-24 07:38 | Outpatient (CLI) | payer OTHER, SELFPAY | PROVIDERS: PCP Family Medicine; Referring Provider Internal Medicine; Visit Provider Internal Medicine | DX: Z23 Encounter for immunization (principal) | CPT/HCPCS: 90471; 90686 ==

== ENCOUNTER → 2022-08-15 14:49 | Outpatient (CLI) | payer OTHER, SELFPAY ==
[2022-08-15 17:09] LABS: Influenza A - CEPHEID Flu A POSITIVE (NEGATIVE); Influenza B - CEPHEID Flu B NEGATIVE (NEGATIVE); Respiratory Syncytial Virus Negative (Negative)
[2022-08-15 17:25] LABS: COVID-19 CEPHEID 4-PLEX PCR Negative (Negative)
== END ==
PROVIDERS: PCP Family Medicine; Visit Provider Physician Assistant Medical
DX: R05.9 Cough, unspecified (principal); R50.9 Fever, unspecified; R51.9 Headache, unspecified; Z20.822 Contact with and (suspected) exposure to COVID-19
CPT/HCPCS: 0241U

== ENCOUNTER → 2022-09-05 07:00 | Outpatient (CLI) | payer OTHER, SELFPAY ==
--- NOTE | 2022-09-05 | DI.MG.S_ITS ---
BILATERAL DIGITAL SCREENING MAMMOGRAM 3D/2D WITH CAD: 09/05/2022 CLINICAL: Routine screening. Comparison is made to exams dated: 08/12/2021 mammogram, 06/23/2020 mammogram, and 05/08/2019 mammogram - [facility]. Both breasts are heterogeneously dense, which may obscure small masses (category c / 51-75% glandular tissue). Current study was also evaluated with a Computer Aided Detection (CAD) system. There is a biopsy clip in the left breast. No significant masses, calcifications, or other findings are seen in either breast. There has been no significant interval change. IMPRESSION: NEGATIVE There is no mammographic evidence of malignancy. A 1 year screening mammogram is recommended. Based on the Tyrer Cuzick model (a risk assessment model) the patient's lifetime risk is 10.6% and her 10 year risk is 4.5%. According to the ACR, ACS, and NCCN guidelines, an annual breast MRI exam along with mammogram is recommended if the patient's lifetime risk is 20% or greater. This exam was interpreted at Station ID: [id number]. NOTE: For mammograms, a report in lay terms will be sent to the patient. Approximately 15% of breast malignancies will not be visualized mammographically. In the management of a palpable breast mass, a negative mammogram must not discourage biopsy of a clinically suspicious lesion. Electronically Signed By: Teo jones/buddy:09/05/2022 17:02:01 letter sent: Normal Exam ACR BI-RADS Category 1: Negative 3341F
== END ==
PROVIDERS: PCP Family Medicine; Referring Provider Family Medicine; Visit Provider Family Medicine
DX: Z12.31 Encounter for screening mammogram for malignant neoplasm of breast (principal)
CPT/HCPCS: 77063; 77067

== ENCOUNTER → 2022-10-12 08:20 | Outpatient (CLI) | payer OTHER, SELFPAY ==
[2022-10-12 09:04] LABS: Add Manual Diff / Slide Review NO; Basophils Absolute Auto 0 /uL (0-100); Basophils Percent Auto 0.2 % (0-2); Eosinophils Absolute Auto 100 /uL (0-450); Eosinophils Percent Auto 2.6 % (2-4); Hematocrit 31.4 % (36-46); Lymphocytes Absolute Auto 2500 /uL (1100-4500); Lymphocytes Percent Auto 47.7 % (25-40); Mean Corpuscular HGB Conc 31.8 % (30-36); Mean Corpuscular Hemoglobin 23.4 PG (26-34); Mean Corpuscular Volume 73.5 fL (80-100); Monocytes Absolute Auto 400 /uL (0-900); Monocytes Percent Auto 8.3 % (3-14); Neutrophils Absolute Auto 2200 /uL (1500-7000); Neutrophils Percent Auto 41.2 % (50-75); Platelet Count 271 X10^3/uL (150-400); Red Blood Cell Count 4.28 X10^6/uL (4.0-5.2); Red Cell Distribution Width 14.7 % (11.6-14.8); White Blood Cell Count 5.3 X10^3/uL (4.5-11.0)
[2022-10-12 09:11] LABS: Alanine Aminotransferase 18 IU/L (<35); Albumin 4.5 g/dL (3.5-5.0); Albumin Globulin Ratio 1.4 (1.0-2.8); Alkaline Phosphatase 79 U/L (38-126); Aspartate Aminotransferase 25 IU/L (14-36); BUN Creatinine Ratio 19.7 (6-22); Bilirubin Total 0.2 mg/dL (0.2-1.3); Blood Urea Nitrogen 12 mg/dL (7-17); Calcium 8.7 mg/dL (8.4-10.2); Carbon Dioxide 24 mmol/L (22-32); Chloride 104 mmol/L (98-107); Estimated Glomerular Filt Rate > 60 mL/min (>60); Globulin 3.3 g/dL (1.7-4.1); Glucose 100 mg/dL (80-110); HEMOLYSIS < 15 (0-50); Potassium 3.8 mmol/L (3.4-5.1); Sodium 139 mmol/L (137-145); Total Protein 7.8 g/dL (6.3-8.2)
[2022-10-20 23:57] LABS: Interpretation Negative (.)
== END ==
PROVIDERS: PCP Family Medicine; Referring Provider Internal Medicine Hematology & Oncology; Visit Provider Internal Medicine Hematology & Oncology
DX: C92.10 Chronic myeloid leukemia, BCR/ABL-positive, not having achieved remission (principal)
CPT/HCPCS: 36415; 80053; 81206; 81207; 85025

== ENCOUNTER 2022-11-08 07:54 | Day surgery (SDC) | payer OTHER, SELFPAY ==
[2022-11-08 08:14] VITALS: BP 117/74; PULSE 93; RESP 16; TEMP 36.2; O2SAT 100; BMI 25.7
[2022-11-08] MEDS: LACTATED RINGERS 1,000 ML 200 ML IV (08:28)
--- NOTE | 2022-11-08 09:09 | PM.HP.1 ---
History of Present Illness History of Present Illness Date Patient Seen: 11/08/22 Time Patient Seen: 09:09 Chief complaint: Colonoscopy Narrative: The patient presents for colorectal screening. Previously normal colonoscopy 10 years ago.. No personal or family history of colon cancer. On further history denies any recent gastrointestinal symptoms. No nausea, vomiting, abdominal pain, loss of appetite, unexplained weight loss, change in bowel habits, or blood per rectum. Patient History Medical History Hypertension Thalassemia Surgical History Status post tubal ligation (01/07/00) Family & Social History Family History Mother Age: 97 CVA (cerebral infarction) Hypertension Social History: household members spouse Tobacco & Substance use: Smoking Status Never smoker alcohol intake never Substance Use Type does not use Meds Home Medications and Allergies Home Medications Medication Instructions Recorded Confirmed Type clobetasol 0.05 % topical ointment 1 applic topical BID PRN eczema 04/14/22 11/08/22 Rx #60 grams desonide 0.05 % topical cream 1 applic topical BID #60 grams 04/14/22 11/08/22 Rx lisinopril 10 mg tablet 10 mg PO DAILY #90 tabs 09/20/22 11/08/22 Rx imatinib 400 mg tablet (Gleevec) 400 mg PO DAILY #90 tabs 10/24/22 11/08/22 Rx Allergies Allergy/AdvReac Type Severity Reaction Status Date / Time allopurinol [ALLOPURINOL] Allergy Mild rash and Verified 11/08/22 08:24 itch latex [LATEX] Allergy Mild hives Verified 11/08/22 08:24 prednisone AdvReac Mild High BP Verified 11/08/22 08:24 Exam Vital Signs (past 8 hours): - 11/08/22 08:14 Temperature 97.2 F L Pulse Rate 93 H Respiratory Rate 16 Blood Pressure 117/74 Pulse Oximetry 100 Oxygen Delivery Method Room Air Oxygen Delivery Method Room Air Narrative Exam Narrative: General adult woman alert oriented no acute distress Abdomen soft nontender nondistended Assessment & Plan Assessment & Plan narrative: The patient requires colorectal screening and colonoscopy is recommended. Technical details were discussed. Risks, benefits, alternatives explained. Risks including but not limited to myocardial infarction, aspiration, bleeding, pain, missed lesion, incomplete examination, need for further radiographic studies, colonic perforation, and need for major abdominal surgery were discussed. All questions were answered to their satisfaction, and they are in agreement with this plan. Time Spent With Patient Critical Care time: I spent a total of [] minutes of critical care time on this patient's care today; this time is exclusive of procedural time.
--- NOTE | 2022-11-08 09:10 | PM.OP.COLON ---
Operative Date/Time/Diagnoses Date of procedure: 11/08/22 Time of procedure: 09:10 Pre-op diagnosis: Colorectal screening Post-op diagnosis: same Procedure & Clinicians Study performed: Colonoscopy Same procedure as scheduled: Yes Indications: Colorectal screening Surgeon: Jacob Ramirez Procedure Notes Procedure in detail: The history and physical was performed/updated and the patient is ASA class is 2. The procedure was discussed in detail with the patient. Potential risks complications including infection, bleeding, missed diagnosis, perforation, need for surgery, and were explained. Their questions were answered and informed consent was obtained. Patient was brought to the procedure room and placed standard monitoring equipment. The patient's vital signs were monitored continuously throughout the entire procedure. Prior to starting time-out was performed. The patient was placed in the left lateral recumbent position. Procedural sedation was administered by anesthesia. Examination began with a thorough inspection of the perianal area there was no evidence of fissures, fistulae, external hemorrhoids or cutaneous malignancy. The colonoscopy scope was then placed into the anal canal and was advanced to the cecum, which was identified by the ileocecal valve, the appendiceal orifice and the confluence of the taenia. The scope was then slowly withdrawn examining colon thoroughly in all directions, irrigating it of any residual stool. The colon was entirely unremarkable. No masses polyps or inflammation. The patient tolerated the procedure well. They will be discharged once criteria are met. The prep was of good/excellent quality. The withdrawl time was 7 minutes. Specimen(s): none sent Impression: Normal healthy colon. Post-procedure Recommendations: Colonoscopy in 10 years and High fiber diet Disposition: same day surgery
[2022-11-08 09:38] VITALS: BP 105/67; PULSE 72; RESP 20; TEMP 36.4; O2SAT 99
[2022-11-08 09:44] VITALS: BP 108/66; PULSE 69; RESP 20; TEMP 36.4; O2SAT 100
[2022-11-08 09:57] VITALS: BP 125/63; PULSE 73; RESP 18; TEMP 36.4; O2SAT 99
== END 2022-11-08 10:16 | disposition home or self-care (01) ==
PROVIDERS: PCP Family Medicine; Referring Provider Surgery; Visit Provider Surgery
PROC: 0DJD8ZZ Inspection of Lower Intestinal Tract, Via Natural or Artificial Opening Endoscopic (ICD-10-PCS; CPT 45378; principal; 2022-11-08 09:00)
DX: Z12.11 Encounter for screening for malignant neoplasm of colon (principal)
CPT/HCPCS: 45378; J2704

== ENCOUNTER → 2023-06-08 15:55 | Outpatient (CLI) | payer OTHER, SELFPAY | PROVIDERS: PCP Family Medicine; Referring Provider Family Medicine; Visit Provider Family Medicine | DX: Z23 Encounter for immunization (principal) | CPT/HCPCS: 90471; 90686 ==

== ENCOUNTER → 2023-09-05 07:27 | Outpatient (CLI) | payer OTHER, SELFPAY ==
[2023-09-13 13:57] LABS: Interpretation Negative (.)
== END ==
LOC: LAB 07:29
PROVIDERS: PCP Family Medicine; Referring Provider Internal Medicine Hematology & Oncology; Visit Provider Internal Medicine Hematology & Oncology
DX: C92.10 Chronic myeloid leukemia, BCR/ABL-positive, not having achieved remission (principal)
CPT/HCPCS: 36415; 81206; 81207; 82728; 83540; 83550

== ENCOUNTER → 2023-09-19 10:48 | Outpatient (CLI) | payer OTHER, SELFPAY ==
--- NOTE | 2023-09-19 10:49 | DI.MG.S_ITS ---
BILATERAL DIGITAL SCREENING MAMMOGRAM 3D/2D WITH CAD: 09/19/2023 CLINICAL: Routine screening. Comparison is made to exams dated: 09/05/2022 mammogram, 08/12/2021 mammogram, 06/23/2020 mammogram, 05/08/2019 mammogram, 02/21/2018 mammogram, and 02/19/2018 mammogram - [facility]. Both breasts are heterogeneously dense, which may obscure small masses (category c / 51-75% glandular tissue). Current study was also evaluated with a Computer Aided Detection (CAD) system. There is a biopsy clip in the left breast. No significant masses, calcifications, or other findings are seen in either breast. There has been no significant interval change. IMPRESSION: BENIGN There is no mammographic evidence of malignancy. A 1 year screening mammogram is recommended. Based on the Tyrer Cuzick model (a risk assessment model) the patient's lifetime risk is 10.4% and her 10 year risk is 4.5%. According to the ACR, ACS, and NCCN guidelines, an annual breast MRI exam along with mammogram is recommended if the patient's lifetime risk is 20% or greater. This exam was interpreted at Station ID: [id number]. NOTE: For mammograms, a report in lay terms will be sent to the patient. Approximately 15% of breast malignancies will not be visualized mammographically. In the management of a palpable breast mass, a negative mammogram must not discourage biopsy of a clinically suspicious lesion. Electronically Signed By: Lindsey Schilling M.D., PH.D eb/penrad:09/19/2023 23:33:27 letter sent: Normal Exam ACR BI-RADS Category 2: Benign Finding(s) 3342F
== END ==
LOC: MAMMO 10:49
PROVIDERS: PCP Family Medicine; Referring Provider Family Medicine; Visit Provider Family Medicine
DX: Z12.31 Encounter for screening mammogram for malignant neoplasm of breast (principal); R92.333 Mammographic heterogeneous density, bilateral breasts
CPT/HCPCS: 77063; 77067

== ENCOUNTER → 2024-03-05 10:15 | Outpatient (CLI) | payer OTHER, SELFPAY ==
[2024-03-05 10:32] LABS: Add Manual Diff / Slide Review NO; Basophils Absolute Auto 100 /uL (0-100); Basophils Percent Auto 0.9 % (0-2); Eosinophils Absolute Auto 200 /uL (0-450); Eosinophils Percent Auto 2.5 % (2-4); Hemoglobin 10.2 g/dL (12.0-16.0); Lymphocytes Absolute Auto 3000 /uL (1100-4500); Lymphocytes Percent Auto 46.3 % (25-40); Mean Corpuscular HGB Conc 31.9 % (30-36); Mean Corpuscular Hemoglobin 23.5 PG (26-34); Mean Corpuscular Volume 73.9 fL (80-100); Monocytes Absolute Auto 500 /uL (0-900); Monocytes Percent Auto 7.6 % (3-14); Neutrophils Absolute Auto 2700 /uL (1500-7000); Neutrophils Percent Auto 42.7 % (50-75); Platelet Count 279 X10^3/uL (150-400); Red Blood Cell Count 4.33 X10^6/uL (4.0-5.2); Red Cell Distribution Width 13.9 % (11.6-14.8); White Blood Cell Count 6.4 X10^3/uL (4.5-11.0)
[2024-03-05 10:51] LABS: Alanine Aminotransferase 17 IU/L (<35); Albumin 4.4 g/dL (3.5-5.0); Albumin Globulin Ratio 1.5 (1.0-2.8); Alkaline Phosphatase 70 U/L (38-126); Aspartate Aminotransferase 30 IU/L (14-36); Bilirubin Total 0.6 mg/dL (0.2-1.3); Blood Urea Nitrogen 15 mg/dL (7-17); Calcium 9.1 mg/dL (8.4-10.2); Carbon Dioxide 26 mmol/L (22-32); Chloride 105 mmol/L (98-107); Estimated Glomerular Filt Rate > 60 mL/min (>60); Glucose 97 mg/dL (80-110); HEMOLYSIS < 15 (0-50); Potassium 4.4 mmol/L (3.4-5.1); Sodium 138 mmol/L (137-145); Total Protein 7.4 g/dL (6.3-8.2)
[2024-03-05 10:57] LABS: HEMOLYSIS < 15 (0-50); Iron 229 ug/dL (37-170)
[2024-03-05 11:08] LABS: Total Iron Binding Capacity 284 ug/dL (265-497); Transferrin 224 mg/dL (206-381)
[2024-03-05 11:09] LABS: Percent Iron Saturation 81 % (15-50)
[2024-03-05 11:19] LABS: Ferritin 197 ng/mL (11-264)
== END ==
PROVIDERS: PCP Family Medicine; Referring Provider Internal Medicine Hematology & Oncology; Visit Provider Internal Medicine Hematology & Oncology
DX: C92.10 Chronic myeloid leukemia, BCR/ABL-positive, not having achieved remission (principal)
CPT/HCPCS: 36415; 80053; 81206; 81207; 82728; 83540; 83550; 85025

== ENCOUNTER 2024-04-03 10:08 | Emergency (ER) | payer OTHER, SELFPAY ==
[2024-04-03] VITALS (23 sets, daily range): BP systolic 147–208; BP diastolic 58–98; PULSE 78–110; RESP 3–31; TEMP 36.7; O2SAT 93–100; BMI 27.1
--- NOTE | 2024-04-03 10:14 | DI.RAD.S_ITS ---
PROCEDURE: XR CHEST 1V INDICATIONS: chest pain TECHNIQUE: One view of the chest was acquired. COMPARISON: [facility], CR, XR CHEST 1V, 04/01/2020, 15:00. FINDINGS: Surgical changes and devices: None. Lungs and pleura: No dense consolidation or pleural effusion. Mediastinum: Borderline cardiomegaly. Prominent right hilar contour is indeterminate on radiography. Bones and chest wall: Degenerative changes IMPRESSION: No acute pulmonary process on single view radiography. Borderline enlarged heart and prominent right hilar contour, otherwise indeterminate on radiography Dictated by: James Dong M.D. on 04/03/2024 at 10:45 Approved by: James Dong M.D. on 04/03/2024 at 10:46
--- NOTE | 2024-04-03 10:19 | EKG_ITS ---
[address] [address] Test Date: 2024-04-03 Pat Name: Tayler Peng Department: [facility] Room: Gender: Female Presser First: ROSA ISELA : 1960 Requested By: Order Number: [id number] Reading MD: Bill Molina MD Measurements Intervals [place] Rate: 94 P: 57 CO: 136 QRS: 32 QRSD: 86 T: 58 QT: 364 QTc: 455 Interpretive Statements Normal sinus rhythm Electronically Signed On 04-03-2024 10:24:49 PDT by Bill Molina MD
[2024-04-03 10:57] LABS: Add Manual Diff / Slide Review NO; Basophils Absolute Auto 100 /uL (0-100); Basophils Percent Auto 0.9 % (0-2); Eosinophils Absolute Auto 100 /uL (0-450); Eosinophils Percent Auto 2.5 % (2-4); Hematocrit 33.8 % (36-46); Hemoglobin 10.8 g/dL (12.0-16.0); Lymphocytes Absolute Auto 2600 /uL (1100-4500); Lymphocytes Percent Auto 43.8 % (25-40); Mean Corpuscular HGB Conc 31.9 % (30-36); Mean Corpuscular Hemoglobin 23.6 PG (26-34); Mean Corpuscular Volume 74.2 fL (80-100); Monocytes Absolute Auto 500 /uL (0-900); Monocytes Percent Auto 9.2 % (3-14); Neutrophils Absolute Auto 2600 /uL (1500-7000); Neutrophils Percent Auto 43.6 % (50-75); Platelet Count 298 X10^3/uL (150-400); Red Blood Cell Count 4.56 X10^6/uL (4.0-5.2); Red Cell Distribution Width 14.5 % (11.6-14.8)
[2024-04-03 11:07] LABS: Alanine Aminotransferase 20 IU/L (<35); Albumin 4.7 g/dL (3.5-5.0); Albumin Globulin Ratio 1.6 (1.0-2.8); Alkaline Phosphatase 56 U/L (38-126); Aspartate Aminotransferase 31 IU/L (14-36); BUN Creatinine Ratio 14.1 (6-22); Bilirubin Total 0.5 mg/dL (0.2-1.3); Blood Urea Nitrogen 9 mg/dL (7-17); Calcium 9.3 mg/dL (8.4-10.2); Carbon Dioxide 21 mmol/L (22-32); Chloride 107 mmol/L (98-107); Creatine Kinase 176 U/L (30-135); Estimated Glomerular Filt Rate > 60 mL/min (>60); Glucose 125 mg/dL (80-110); HEMOLYSIS < 15 (0-50); Lipase 177 U/L (23-300); Potassium 3.6 mmol/L (3.4-5.1); Sodium 138 mmol/L (137-145); Total Protein 7.7 g/dL (6.3-8.2)
[2024-04-03 11:19] LABS: NT-proBNP (BNP-Adult 18+) 183 pg/mL (<125); Troponin I < 0.012 ng/mL (0.01-0.034)
[2024-04-03 11:20] LABS: INR 0.9 (0.9-1.3); Prothrombin Time 10.4 SECONDS (9.4-12.5)
--- NOTE | 2024-04-03 11:21 | ED_ITS ---
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 She states it does not radiate to the front, it does not go down her arm does not go to the other side does not go down her back. Feels tight, she has been using patches to the affected area which has been a little bit helpful. She denies fevers or chills, no anterior chest pain, no shortness of breath, no nausea or vomiting, no diaphoresis. No palpitations she is felt like her heart rates sometimes little bit fast. Denies any lightheadedness or passing out. No new swelling of extremities. Patient states she does have a history of hypertension on lisinopril 20 mg for about 10 years, no medication changes recently she has been on Gleevec for about a year. She does not take any anticoagulants or aspirin. Has a history of Achilles tendon repair years ago. Denies any drug allergies but has allergies to latex and seafood. No tobacco, alcohol or recreational drugs. She states dad from congestive heart failure at age 87, mom had a stroke at 80 age 83. She has siblings with no cardiac issues she was the only 1 on any blood pressure medication. Dr. Gustafson is her primary care physician. Related Data Previous Rx's Medication Instructions Recorded imatinib 400 mg tablet (Gleevec) 400 mg PO DAILY #90 tabs 10/24/22 clobetasol 0.05 % topical ointment 1 applic topical BID PRN eczema 09/07/23 #120 grams lisinopril 20 mg tablet 20 mg PO DAILY #90 tabs 09/18/23 Allergies Allergy/AdvReac Type Severity Reaction Status Date / Time allopurinol [ALLOPURINOL] Allergy Mild rash and Verified 04/03/24 10:15 itch latex [LATEX] Allergy Mild hives Verified 04/03/24 10:15 prednisone AdvReac Mild High BP Verified 04/03/24 10:15 Review of Systems Review of Systems ROS Unobtainable: All systems reviewed & are unremarkable except as noted in HPI and below Patient History Medical History Thalassemia Hypertension Surgical History Status post tubal ligation (01/07/00) Family History Mother Age: 99 CVA (cerebral infarction) Hypertension Social History marital status: household members: spouse Smoking Status: Never smoker alcohol intake: never substance use type: does not use Smoking Status: Never smoker alcohol intake frequency: holidays/special occasions only Substance Use Type: does not use Exam Narrative Exam Narrative: GENERAL: Alert and oriented x three, well-appearing female in mild distress. HEENT: Head normocephalic, atraumatic, EOMI, pupils reactive, face symmetric, moist mucous membranes NECK: Supple, full range of motion CARDIOVASCULAR: Regular rate and rhythm without murmurs, rubs or gallops. RESPIRATORY: Breath sounds equal bilaterally, no wheezes rales or rhonchi. ABDOMEN: Soft, nontender. Normoactive bowel sounds all 4 quadrants. No guarding or rebound, rigidity, no mass : No CVA tenderness BACK: No cervical, thoracic or lumbar vertebral point tenderness. Patient has normal range of motion. Patient's gait is normal. 2+ radial pulses bilaterally. Full range of motion. Patient has some muscle tightness over the trapezius, no rash or skin changes. Sensation is intact in the lower extremities. EXTREMITIES: Normal range of motion, no clubbing or edema. Neurovascularly intact NEUROLOGICAL: Cranial nerves II through XII grossly intact. Moving all extremities SKIN: Warm, dry, no petechiae, no rashes or lesions. Initial Vital Signs Initial Vital Signs: Vital Signs Temperature 98.0 F 04/03/24 10:09 Pulse Rate 106 H 04/03/24 10:09 Respiratory Rate 14 04/03/24 10:09 Blood Pressure 208/98 H 04/03/24 10:09 Pulse Oximetry 100 04/03/24 10:09 Oxygen Delivery Method Room Air 04/03/24 10:09 Course Orders Ordered: ED Orders 04/03/24 10:14 XR chest 1V Stat EKG-12 Lead Stat 04/03/24 10:45 Complete Blood Count AUTO DIFF Stat Comprehensive Metabolic Panel Stat Lipase Stat Magnesium Stat NT-proBNP (BNP-Adult 18+) Stat Troponin & CK Cardiac Panel Stat 04/03/24 11:05 PTT Partial Thromboplastin Brett Stat Prothrombin Time INR Stat 04/03/24 11:30 Urinalysis and Microscopic Stat 04/03/24 13:42 Trop I [Troponin I] Stat 04/03/24 14:04 EKG-12 Lead Routine Vital Signs Vital signs: Vital Signs - 8 hr 04/03/24 10:30 04/03/24 10:50 04/03/24 10:50 Pulse Rate 91 H 101 H Respiratory Rate 24 22 Blood Pressure 204/87 H Pulse Oximetry 100 04/03/24 11:00 04/03/24 11:00 04/03/24 11:15 Pulse Rate 95 H Respiratory Rate 21 Blood Pressure 186/80 H 175/59 H Pulse Oximetry 100 04/03/24 11:15 04/03/24 11:30 04/03/24 11:32 Pulse Rate 91 H 96 H 95 H Respiratory Rate 22 15 3 L Blood Pressure Pulse Oximetry 100 100 100 04/03/24 11:32 04/03/24 11:45 04/03/24 11:45 Pulse Rate 94 H Respiratory Rate 28 H Blood Pressure 179/78 H 173/77 H Pulse Oximetry 100 04/03/24 12:00 04/03/24 12:00 04/03/24 12:15 Pulse Rate 84 Respiratory Rate 20 Blood Pressure 160/58 H 151/67 H Pulse Oximetry 100 04/03/24 12:15 04/03/24 12:30 04/03/24 12:34 Pulse Rate 79 90 Respiratory Rate 19 31 H Blood Pressure 180/81 H Pulse Oximetry 99 100 04/03/24 12:34 04/03/24 12:45 04/03/24 12:45 Pulse Rate 88 81 Respiratory Rate 19 19 Blood Pressure 157/60 H Pulse Oximetry 99 99 04/03/24 13:00 04/03/24 13:00 04/03/24 13:15 Pulse Rate 83 Respiratory Rate 18 Blood Pressure 155/70 H 151/67 H Pulse Oximetry 99 04/03/24 13:15 04/03/24 13:30 04/03/24 13:30 Pulse Rate 78 81 Respiratory Rate 17 18 Blood Pressure 147/65 H Pulse Oximetry 100 100 04/03/24 13:45 04/03/24 13:45 04/03/24 14:00 Pulse Rate 85 80 Respiratory Rate 19 24 Blood Pressure 154/75 H Pulse Oximetry 100 100 04/03/24 14:00 04/03/24 14:15 04/03/24 14:15 Pulse Rate 82 Respiratory Rate 18 Blood Pressure 170/76 H 153/66 H Pulse Oximetry 100 Medical Decision Making Lab Data 04/03/24 10:45 04/03/24 10:45 Labs: Lab Results 04/03/24 04/03/24 04/03/24 Range/Units 10:45 11:05 11:30 WBC 6.0 (4.5-11.0) X10^3/uL RBC 4.56 (4.0-5.2) X10^6/uL Hgb 10.8 L (12.0-16.0) g/dL Hct 33.8 L (36-46) % MCV 74.2 L (80-100) fL MCH 23.6 L (26-34) PG MCHC 31.9 (30-36) % RDW 14.5 (11.6-14.8) % Plt Count 298 (150-400) X10^3/uL Neut % (Auto) 43.6 L (50-75) % Lymph % (Auto) 43.8 H (25-40) % [place] % (Auto) 9.2 (3-14) % Eos % (Auto) 2.5 (2-4) % Baso % (Auto) 0.9 (0-2) % Neut # (Auto) 2600 (5642-1846) /uL Lymph # (Auto) 2600 (5404-9710) /uL [place] # (Auto) 500 (0-900) /uL Eos # (Auto) 100 (0-450) /uL Baso # (Auto) 100 (0-100) /uL PT 10.4 (9.4-12.5) SECONDS INR 0.9 (0.9-1.3) APTT 36 (25.1-36.5) SECONDS Sodium 138 (137-145) mmol/L Potassium 3.6 (3.4-5.1) mmol/L Chloride 107 (98-107) mmol/L Carbon Dioxide 21 L (22-32) mmol/L BUN 9 (7-17) mg/dL Creatinine 0.64 (0.52-1.04) mg/dL Estimated GFR > 60 (>60) mL/min BUN/Creatinine Ratio 14.1 (6-22) Glucose 125 H (80-110) mg/dL Calcium 9.3 (8.4-10.2) mg/dL Magnesium 2.0 (1.6-2.3) mg/dL Total Bilirubin 0.5 (0.2-1.3) mg/dL AST 31 (14-36) IU/L ALT 20 (<35) IU/L Alkaline Phosphatase 56 (38-126) U/L Total Creatine Kinase 176 H (30-135) U/L Troponin I < 0.012 (0.01-0.034) ng/mL NT-Pro-B Natriuret Pep 183 H (<125) pg/mL Total Protein 7.7 (6.3-8.2) g/dL Albumin 4.7 (3.5-5.0) g/dL Globulin 3.0 (1.7-4.1) g/dL Albumin/Globulin Ratio 1.6 (1.0-2.8) Lipase 177 (23-300) U/L Urine Color Yellow Urine Appearance Clear Urine pH 5.5 (4.5-8.0) Ur Specific [place] <=1.005 (1.000-1.035) Urine Protein Negative (Negative) Urine Glucose (UA) Negative (Negative) g/dL Urine Ketones Negative (NEGATIVE) Urine Occult Blood Negative (Negative) Urine Nitrate Negative (Negative) Urine Bilirubin Negative (NEGATIVE) Urine Urobilinogen 0.2 (0.2) E.U./dL Ur Leukocyte Esterase Negative (NEGATIVE) Urine RBC None seen (0-5/HPF) Urine WBC None seen (0-5/HPF) Ur Squamous Epith Cells None seen (0-5/HPF) Urine Bacteria None seen (None) Ur Culture Indicated? Cult not indicated Vol Urine Centrifuged 10ml (spun) 04/03/24 Range/Units 13:42 WBC (4.5-11.0) X10^3/uL RBC (4.0-5.2) X10^6/uL Hgb (12.0-16.0) g/dL Hct (36-46) % MCV (80-100) fL MCH (26-34) PG MCHC (30-36) % RDW (11.6-14.8) % Plt Count (150-400) X10^3/uL Neut % (Auto) (50-75) % Lymph % (Auto) (25-40) % [place] % (Auto) (3-14) % Eos % (Auto) (2-4) % Baso % (Auto) (0-2) % Neut # (Auto) (3191-2282) /uL Lymph # (Auto) (1740-1631) /uL [place] # (Auto) (0-900) /uL Eos # (Auto) (0-450) /uL Baso # (Auto) (0-100) /uL PT (9.4-12.5) SECONDS INR (0.9-1.3) APTT (25.1-36.5) SECONDS Sodium (137-145) mmol/L Potassium (3.4-5.1) mmol/L Chloride (98-107) mmol/L Carbon Dioxide (22-32) mmol/L BUN (7-17) mg/dL Creatinine (0.52-1.04) mg/dL Estimated GFR (>60) mL/min BUN/Creatinine Ratio (6-22) Glucose (80-110) mg/dL Calcium (8.4-10.2) mg/dL Magnesium (1.6-2.3) mg/dL Total Bilirubin (0.2-1.3) mg/dL AST (14-36) IU/L ALT (<35) IU/L Alkaline Phosphatase (38-126) U/L Total Creatine Kinase (30-135) U/L Troponin I < 0.012 (0.01-0.034) ng/mL NT-Pro-B Natriuret Pep (<125) pg/mL Total Protein (6.3-8.2) g/dL Albumin (3.5-5.0) g/dL Globulin (1.7-4.1) g/dL Albumin/Globulin Ratio (1.0-2.8) Lipase (23-300) U/L Urine Color Urine Appearance Urine pH (4.5-8.0) Ur Specific [place] (1.000-1.035) Urine Protein (Negative) Urine Glucose (UA) (Negative) g/dL Urine Ketones (NEGATIVE) Urine Occult Blood (Negative) Urine Nitrate (Negative) Urine Bilirubin (NEGATIVE) Urine Urobilinogen (0.2) E.U./dL Ur Leukocyte Esterase (NEGATIVE) Urine RBC (0-5/HPF) Urine WBC (0-5/HPF) Ur Squamous Epith Cells (0-5/HPF) Urine Bacteria (None) Ur Culture Indicated? Vol Urine Centrifuged Imaging Data Chest x-ray: Radiologist's Impression: Close Chest X-Ray (Signed) James Dong - 04/03/24 Mammogram Screening (Signed) Lindsey Schilling - 09/19/23 Mammogram Screening (Signed) Teo Elliott - 09/05/22 Brain MRI (Signed) Anna Loyola - 10/18/21 Mammogram Screening (Signed) Zoë Buckley - 08/12/21 Mammogram Screening (Signed) Teo Elliott - 06/23/20 Chest X-Ray (Signed) Jamin Wilson - 04/01/20 Telemetry Strips 04/01/20 Mammogram Screening (Signed) Francisco Ramos - 05/08/19 Abdomen Ultrasound (Signed) Roverto Betancourt - 10/01/18 Breast Ultrasound (Signed) Savage Becker - 02/21/18 Mammogram, Additional Views (Signed) Savage Becker - 02/21/18 Mammogram Screening (Signed) Savage Becker - 02/19/18 Launch?Image [address] [address] XRay Report Signed Patient: Tayler Peng I MR#: [id number] : 1960 Acct:[id number] Age/Sex: 63 / F Date of Service: 04/03/24 Loc: ED Accession Number: [id number] Procedure: XR chest 1V Ordering Provider: Brina Aguilar D.O. PROCEDURE: XR CHEST 1V INDICATIONS: chest pain TECHNIQUE: One view of the chest was acquired. COMPARISON: [facility], , XR CHEST 1V, 04/01/2020, 15:00. FINDINGS: Surgical changes and devices: None. Lungs and pleura: No dense consolidation or pleural effusion. Mediastinum: Borderline cardiomegaly. Prominent right hilar contour is indeterminate on radiography. Bones and chest wall: Degenerative changes IMPRESSION: No acute pulmonary process on single view radiography. Borderline enlarged heart and prominent right hilar contour, otherwise indeterminate on radiography Dictated by: James Dong M.D. on 04/03/2024 at 10:45 Approved by: James Dong M.D. on 04/03/2024 at 10:46 ECG Data Attestation: I personally reviewed and interpreted this ECG as follows: Prior ECG tracings: available for review Interpretation: Sinus rhythm rate of 94 LA 136 QRS 86 QTC of 455. No acute ST changes. Patient has prior from 04/01/2020 which appears overall similar. Sinus rhythm rate 81 LA 136 QRS [address] QTC [address] No acute ST elevation or depression. Patient's EKG appears similar to prior from earlier today. MDM Narrative Medical decision making narrative: 63-year-old female history of hypertension, thalassemia, CML on Gleevec. Patient describes some right trapezius shoulder discomfort that has been present for about 2 days. She noted blood pressure is higher than typical. She denies any anterior chest pain or other cardiac symptoms. No fevers. No cold cough congestion. Does note her heart rate has been a little fast. No history of cardiac arrhythmias. Patient has a white count of 6 hemoglobin of 10.8 consistent with priors microcytosis, platelets are 298. Coags 0.9/PTT is negative. Chemistry shows sodium 138 potassium 3.6 chloride of 107 CO2 of 21 BUN 9 creatinine 0.64 glucose of 125 calcium is 9.3 with a Mag of 2, LFTs are negative total CK is 176, BNP is 183 troponin less than 0.012 lipase is 177. Repeat troponin is less than 0.012. Chest x-ray shows borderline enlarged heart and prominent right hilar contour otherwise indeterminate on radiograph. EKG shows sinus rhythm with a rate of 94, sinus rhythm no obvious acute changes. Repeat EKG shows no acute changes. Patient's blood pressure quite elevated on arrival is improving over time. Discharge Plan Departure Patient Disposition: Home Clinical Impression: Acute right-sided thoracic back pain Activity Restrictions/Additional Instructions: Please follow up with your physician for recheck. Please continue to monitor your blood pressure but continues to be elevated they may need to adjust your blood pressure medication. Your workup today did not show any major changes, you are hemoglobin is still low but at baseline. Please return for new or worsening symptoms, pain that is changing from your right shoulder/back to new locations, new chest pain, shortness of breath, passing out, fevers, vomiting, new swelling of extremities or other new or concerning changes. Prescriptions: No Action lisinopril 20 mg tablet 20 mg PO DAILY Qty: 90 3RF clobetasol 0.05 % ointment 1 applic Topical BID PRN (Reason: eczema) Qty: 120 3RF Rx Instructions: apply sparingly to eczema twice daily until resolved. imatinib [Gleevec] 400 mg Tablet 400 mg PO DAILY Qty: 90 3RF Rx Instructions: administer with a meal and a large glass of water Referrals: Abel Gustafson MD [Primary Care Provider] - Stand Alone Forms: Patient Portal/API, Work Release Note
[2024-04-03 11:22] LABS: PTT Partial Thromboplastin Tim 36 SECONDS (25.1-36.5)
[2024-04-03 11:44] LABS: Appearance Urine UA CLEAR; Bilirubin Urine UA NEGATIVE (NEGATIVE); Color Urine UA YELLOW; Glucose Urine UA NEGATIVE (Negative); Ketones Urine UA NEGATIVE (NEGATIVE); Leukocyte Esterase Urine UA NEGATIVE (NEGATIVE); Nitrite Urine UA NEGATIVE (Negative); Occult Blood Urine UA NEGATIVE (Negative); Protein Urine UA NEGATIVE (Negative); Specific Gravity Urine UA <=1.005 (1.000-1.035); Urobilinogen Urine UA 0.2 E.U./dL (0.2); pH Urine UA 5.5 (4.5-8.0)
[2024-04-03 11:50] LABS: Bacteria Urine None Seen; Culture Indicated Urine Cult Not Indicated; RBC Urine None Seen (0-5/HPF); Squamous Epithelial Cell Urine None Seen (0-5/HPF); Urine Volume 10mL (spun); WBC Urine None Seen (0-5/HPF)
--- NOTE | 2024-04-03 14:04 | EKG_ITS ---
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
[2024-04-03 14:17] LABS: Troponin I < 0.012 ng/mL (0.01-0.034)
== END 2024-04-03 14:34 | disposition home or self-care (01) ==
PROVIDERS: Emergency Provider Emergency Medicine; PCP Family Medicine
DX: I10 Essential (primary) hypertension (principal); M54.6 Pain in thoracic spine
CPT/HCPCS: 36415; 71045; 80053; 81001; 82550; 83690; 83735; 83880; 84484; 85025; 85610; 85730; 93005; 93010; 99284

== ENCOUNTER → 2024-06-07 15:36 | Outpatient (CLI) | payer OTHER, SELFPAY | PROVIDERS: PCP Family Medicine; Referring Provider Internal Medicine; Visit Provider Internal Medicine | DX: Z23 Encounter for immunization (principal) | CPT/HCPCS: 90471; 90656 ==

== ENCOUNTER → 2024-08-20 07:02 | Outpatient (CLI) | payer OTHER, SELFPAY ==
[2024-08-20 08:32] LABS: HEMOLYSIS < 15 (0-50); Iron 158 ug/dL (37-170)
[2024-08-20 08:44] LABS: Percent Iron Saturation 66 % (15-50); Total Iron Binding Capacity 241 ug/dL (265-497); Transferrin 224 mg/dL (206-381)
[2024-08-20 09:09] LABS: Ferritin 216 ng/mL (11-264)
== END ==
LOC: LAB 07:04
PROVIDERS: PCP Family Medicine; Referring Provider Internal Medicine Hematology & Oncology; Visit Provider Internal Medicine Hematology & Oncology
DX: C92.10 Chronic myeloid leukemia, BCR/ABL-positive, not having achieved remission (principal)
CPT/HCPCS: 81206; 81207; 82728; 83540; 83550

== ENCOUNTER → 2024-11-11 06:58 | Outpatient (CLI) | payer OTHER, SELFPAY ==
--- NOTE | 2024-11-11 06:59 | DI.MG.S_ITS ---
MM screening mammo BI: 11/11/2024. BI-RADS: 2 CLINICAL: 64-year old female for bilateral screening mammogram. Tyrer-Cuzick lifetime risk of 6.2%. No personal or first-degree family history of breast cancer. The patient had a prior left breast biopsy. PRIOR EXAMS 09/19/2023, 09/05/2022, 08/12/2021, 06/23/2020, 05/08/2019, 02/21/2018, 02/19/2018, 10/28/2016, 05/27/2015. MAMMOGRAPHY TECHNIQUE: 2D and 3D (tomosynthesis) digital mammographic views obtained, with additional images as needed for full coverage. Current study was also evaluated with a Computer Aided Detection (CAD) system. DENSITY C. The breasts are heterogeneously dense, which may obscure small masses. MAMMOGRAPHY FINDINGS Right: Benign-appearing calcification noted on the right. There are no suspicious masses, calcifications, or other findings in the breast. Left: Biopsy marker present on the left. Benign-appearing calcification noted on the left. There are no suspicious masses, calcifications, or other findings in the breast. IMPRESSION: * No evidence of malignancy with benign findings. RECOMMENDATIONS Bilateral * Annual screening mammography. OVERALL ASSESSMENT CATEGORY BI-RADS-2: Benign. The [employer] recommends annual screening mammography beginning at age 40 for women with average risk of breast cancer. ELECTRONICALLY SIGNED: Chanel Mei M.D. on 11/11/2024 at 06:24:07 PM PT Interpreting Station ID: [id number]
== END ==
PROVIDERS: PCP Family Medicine; Referring Provider Family Medicine; Visit Provider Family Medicine
DX: Z12.31 Encounter for screening mammogram for malignant neoplasm of breast (principal); R92.333 Mammographic heterogeneous density, bilateral breasts
CPT/HCPCS: 77063; 77067

== ENCOUNTER → 2025-03-21 06:31 | Outpatient (CLI) | payer OTHER, SELFPAY ==
[2025-03-21 07:08] LABS: Add Manual Diff / Slide Review NO; Hematocrit 32.7 % (36-46); Hemoglobin 10.6 g/dL (12.0-16.0); Lymphocytes Absolute Auto 3500 /uL (1100-4500); Mean Corpuscular HGB Conc 32.4 % (30-36); Mean Corpuscular Hemoglobin 24.0 PG (26-34); Mean Corpuscular Volume 74.0 fL (80-100); Platelet Count 276 X10^3/uL (150-400)
[2025-03-21 07:58] LABS: Alanine Aminotransferase 19 IU/L (<35); Albumin 4.5 g/dL (3.5-5.0); Albumin Globulin Ratio 1.6 (1.0-2.8); Alkaline Phosphatase 62 U/L (38-126); Blood Urea Nitrogen 15 mg/dL (7-17); Calcium 9.0 mg/dL (8.4-10.2); Carbon Dioxide 25 mmol/L (22-32); Chloride 104 mmol/L (98-107); Estimated Glomerular Filt Rate > 60 mL/min (>60); Globulin 2.9 g/dL (1.7-4.1); Glucose 103 mg/dL (70-99); HEMOLYSIS 30 (0-50); Potassium 5.1 mmol/L (3.4-5.1); Sodium 135 mmol/L (137-145); Total Protein 7.4 g/dL (6.3-8.2)
== END ==
PROVIDERS: PCP Family Medicine; Referring Provider Internal Medicine Hematology & Oncology; Visit Provider Internal Medicine Hematology & Oncology
DX: C92.10 Chronic myeloid leukemia, BCR/ABL-positive, not having achieved remission (principal)
CPT/HCPCS: 36415; 80053; 85025

== ENCOUNTER → 2025-08-26 06:47 | Outpatient (CLI) | payer OTHER, SELFPAY ==
[2025-08-26 08:32] LABS: HEMOLYSIS < 15 (0-50); Iron 135 ug/dL (37-170)
[2025-08-26 08:44] LABS: Percent Iron Saturation 47 % (15-50); Total Iron Binding Capacity 286 ug/dL (265-497); Transferrin 233 mg/dL (206-381)
[2025-08-26 09:08] LABS: Ferritin 243 ng/mL (11-264)
== END ==
PROVIDERS: PCP Family Medicine
DX: C92.10 Chronic myeloid leukemia, BCR/ABL-positive, not having achieved remission (principal); D56.0 Alpha thalassemia
CPT/HCPCS: 36415; 81206; 81207; 82728; 83540; 83550; 85007